=== PATIENT | female | born 1985 | race Caucasian/White ===

== ENCOUNTER 2017-12-20 16:21 | Emergency (ER) | payer OTHER ==
--- NOTE | 2017-12-20 17:36 | PDOC ---
Rapid Medical Evaluation Time Seen by Provider: 12/20/17 17:28 Medical Evaluation: 12/20/17 17:32 pt c/o: coughing x 2 weeks, completed zpak, no asthma, on amoxicillin now Pt on brief exam:speaking full sentences, no coughing noted, vss Pt ordered for : none pt to proceed to the ED: Discharge Disposition - Diagnosis Cough - Referrals - Patient Instructions - Post Discharge Activity
[2017-12-20 17:42] VITALS: BP 142/85; PULSE 88; TEMP 98.1; BMI 25.5
--- NOTE | 2017-12-20 18:41 | PDOC ---
History of Present Illness - General Chief Complaint: Cold Symptoms Stated Complaint: COLD SYMPTOMS Time Seen by Provider: 12/20/17 17:28 History Source: Patient Exam Limitations: No Limitations - History of Present Illness Initial Comments: 12/20/17 18:36 32 yr female states she had bronchitis took zpack, now on amoxicillin and had decadron injection 2 days ago. PT denies fever no chills, no wheezing, no SOB. no chest pain. Pt has no medical history or allergies. Severity: reports: mild Past History - Past Medical History Allergies/Adverse Reactions: Allergies Allergy/AdvReac Type Severity Reaction Status Date / Time No Known Allergies Allergy Verified 12/20/17 17:33 Home Medications: Ambulatory Orders Albuterol Sulfate Inhaler - [Ventolin HFA Inhaler -] 1 - 2 inh PO Q4H #1 inhaler 12/20/17 Fluticasone Prop 0.05% Nasal [Flonase -] 1 - 2 spray NS DAILY #1 spray.pump CVA: No COPD: No DVT: No Dementia: No - Immunization History Immunization Up to Date: Yes - Suicide/Smoking/Psychosocial Hx Smoking History: Never smoked Information on smoking cessation initiated: No Hx Alcohol Use: No Drug/Substance Use Hx: No Substance Use Type: None *Physical Exam - Vital Signs Last Vital Signs Temp Pulse Resp BP Pulse Ox 98.1 F 88 17 142/85 98 12/20/17 17:33 12/20/17 17:33 12/20/17 17:33 12/20/17 17:33 12/20/17 17:33 - Physical Exam General Appearance: Yes: Nourished, Appropriately Dressed HEENT: positive: EOMI, JUAN, TMs Normal, Pharynx Normal Neck: positive: Supple. negative: Tender Respiratory/Chest: positive: Lungs Clear, Normal Breath Sounds. negative: Chest Tender Cardiovascular: positive: Regular Rhythm, Regular Rate Gastrointestinal/Abdominal: positive: Normal Bowel Sounds, Soft Medical Decision Making - Medical Decision Making 12/20/17 18:38 cc: cough improving pt asking to be checked for bronchitis no fever no sob non smoker *DC/Admit/Observation/Transfer Diagnosis at time of Disposition: Cough - Discharge Dispostion Disposition: HOME Condition at time of disposition: Good - Prescriptions Prescriptions: Albuterol Sulfate Inhaler - [Ventolin HFA Inhaler -] 1 - 2 inh PO Q4H #1 inhaler Fluticasone Prop 0.05% Nasal [Flonase -] 1 - 2 spray NS DAILY #1 spray.pump - Referrals - Patient Instructions Additional Instructions: drink pleanty of fluids to stay hydrated use FLONASE nasal spray for congestion tea with honey and lemon please follow with your primary care doctor tomorrow or Sunday - Post Discharge Activity Forms/Work/School Notes: Back to Work
== END 2017-12-20 18:41 | disposition home or self-care (01) ==
LOC: JER 16:21 → JERFT 16:21
DX: R05 Cough (principal)
CPT/HCPCS: 99281-25

== ENCOUNTER 2018-12-10 14:21 | Emergency (ER) | payer SELFPAY ==
--- NOTE | 2018-12-10 14:34 | PDOC ---
Rapid Medical Evaluation Time Seen by Provider: 12/10/18 14:31 Medical Evaluation: Allergies Allergy/AdvReac Type Severity Reaction Status Date / Time No Known Allergies Allergy Verified 12/20/17 17:33 12/10/18 14:31 Pt presents to the ED for L leg swelling for two days. Denies trauma. Admits to L leg pain. Denies recent travel, smoking, control use. Exam: ambulatory, no limp Orders: Nothing Pt to proceed to the ED for further evaluation Discharge Disposition - Diagnosis Leg pain, left - Referrals - Patient Instructions - Post Discharge Activity
[2018-12-10 14:37] VITALS: BP 140/80; PULSE 80; TEMP 98.6; BMI 25.3
--- NOTE | 2018-12-10 15:22 | PDOC ---
History of Present Illness - General Chief Complaint: Edema Stated Complaint: R ARM/L LEG SWOLLEN Time Seen by Provider: 12/10/18 14:31 History Source: Patient Exam Limitations: Clinical Condition - History of Present Illness Initial Comments: 12/10/18 15:19 Patient with a history of hypertension presented with complaint of 2 day history of pain and swelling to the left thigh down to the left lower leg and calf muscle sudden onset 2 days ago while sitting at work. Patient denies any trauma or injuries to the leg. Patient also reported mild pain to posterior back of right hand over right thumb for 3 days. Patient denies difficulty with ambulation. Patient denies chest pain, shortness of breath, palpitation. Patient denies numbness or tingling sensation. Patient was seen for similar symptoms 6 months ago and duplex done was negative. Patient reported feeling of left thigh feeling heavy than right. Timing/Duration: other (2 days) Past History - Past Medical History Allergies/Adverse Reactions: Allergies Allergy/AdvReac Type Severity Reaction Status Date / Time No Known Allergies Allergy Verified 12/10/18 14:34 Home Medications: Ambulatory Orders Albuterol Sulfate Inhaler - [Ventolin HFA Inhaler -] 1 - 2 inh PO Q4H #1 inhaler 12/20/17 Fluticasone Prop 0.05% Nasal [Flonase -] 1 - 2 spray NS DAILY #1 spray.pump Methocarbamol [Robaxin -] 500 mg PO BID PRN #14 tablet 12/10/18 Naproxen 500 mg PO BID PRN #20 tablet 12/10/18 CVA: No COPD: No DVT: No Dementia: No - Immunization History Immunization Up to Date: Yes - Suicide/Smoking/Psychosocial Hx Smoking History: Never smoked Hx Alcohol Use: No Drug/Substance Use Hx: No Substance Use Type: None Review of Systems - Review of Systems Able to Perform ROS?: Yes Is the patient limited Togolese proficient: No Constitutional: No: Weakness HEENTM: No: Blurred Vision, Recent change in vision Respiratory: No: Orthopnea, Shortness of Breath, SOB with Exertion, SOB at Rest , Hemoptysis Cardiac (ROS): No: Symptoms Reported, See HPI, Chest Pain, Edema, Irregular Heart Rate, Lightheadedness, Palpitations, Syncope, Chest Tightness, Other ABD/GI: No: Nausea, Vomiting Musculoskeletal: Yes: See HPI, Joint Pain (left thumb pain), Muscle Pain (left thigh down to lower leg). No: Joint Swelling, Muscle Weakness, Joint Stiffness *Physical Exam - Vital Signs Last Vital Signs Temp Pulse Resp BP Pulse Ox 98.6 F 80 16 140/80 99 12/10/18 14:34 12/10/18 14:34 12/10/18 14:34 12/10/18 14:34 12/10/18 14:34 - Physical Exam Comments: 12/10/18 15:22 GENERAL: Well developed, well nourished. Awake and alert. No acute distress. NECK: Supple. Full ROM. No JVD. Carotid pulses 2+ and symmetric, without bruits. No thyromegaly. No lymphadenopathy. CARDIOVASCULAR: Regular rate and rhythm. No murmurs, rubs, or gallops. Distal pulses are 2+ and symmetric. PULMONARY: No evidence of respiratory distress. Lungs clear to auscultation bilaterally. No wheezing, rales or rhonchi. ABDOMINAL: Soft. Non-tender. Non-distended. No rebound or guarding. No organomegaly. Normoactive bowel sounds. MUSCULOSKELETAL Normal range of motion at all joints. No bony deformities or tenderness. no pheripheral edema on exam to LE b/l. EXTREMITIES: No cyanosis. No clubbing. No edema. moderate calf muscle and anterior left thigh tenderness. normal pulses on b/l dorsalis pedis and popliteal b/l. SKIN: Warm and dry. Normal capillary refill. NEUROLOGICAL: Alert, awake, appropriate. Cranial nerves 2-12 intact.No motor deficits in the in lower extremities. Normoreflexic in the upper and lower extremities. Normal speech. Toes are down-going bilaterally. Gait is normal without ataxia. PSYCHIATRIC: Cooperative. Good eye contact. Appropriate mood and affect. General Appearance: Yes: Nourished, Appropriately Dressed. No: Apparent Distress Moderate Sedation - Procedure Monitoring Vital Signs: Procedure Monitoring Vital Signs Temperature 98.6 F 12/10/18 14:34 Pulse Rate 80 12/10/18 14:34 Respiratory Rate 16 12/10/18 14:34 Blood Pressure 140/80 12/10/18 14:34 O2 Sat by Pulse Oximetry (%) 99 12/10/18 14:34 ED Treatment Course - RADIOLOGY Radiology Studies Ordered: Category Date Time Status DUPLEX VASCUL US-1 LEG [US] Stat Ultrasound 12/10/18 15:15 Ordered Medical Decision Making - Medical Decision Making 12/10/18 15:26 Patient with a history of hypertension presented with complaint of 2 day history of pain and swelling to the left thigh down to the left lower leg and calf muscle sudden onset 2 days ago while sitting at work. Patient denies any trauma or injuries to the leg. Patient also reported mild pain to posterior back of right hand over right thumb for 3 days. Patient denies difficulty with ambulation. Patient denies chest pain, shortness of breath, palpitation. Patient denies numbness or tingling sensation. Patient was seen for similar symptoms 6 months ago and duplex done was negative. Exam significant for subjective tenderness to anterior thigh area and cuff muscle of left leg. No peripheral edema visible on exam. Bilateral lower extremity equal in size on visualization. Increased warmth or erythema to left lower extremity. Normal pulses left lower extremity. Symptoms likely muscle spasm. Duplex ultrasound of left lower extremity ordered to rule out DVT 12/10/18 16:37 Duplex ultrasound of left lower extremity negative for DVT. Symptoms likely muscle cramps. Motrin 800 mg by mouth and cyclobenzaprine 5 mg by mouth given. Patient is stable for discharge on NSAIDs and muscle relaxer with advised to do stretching exercise with PCP follow-up as needed. *DC/Admit/Observation/Transfer Diagnosis at time of Disposition: Leg pain, left, Muscle spasm of left lower extremity - Discharge Dispostion Disposition: HOME Condition at time of disposition: Stable Decision to Admit order: No - Prescriptions Prescriptions: Methocarbamol [Robaxin -] 500 mg PO BID PRN #14 tablet PRN Reason: thigh pain Naproxen 500 mg PO BID PRN #20 tablet PRN Reason: pain - Referrals Referrals: Anirudh Okeefe MD [Primary Care Provider] - - Patient Instructions Printed Discharge Instructions: DI for Nocturnal Leg Cramps Additional Instructions: Leg ultrasound shows no blood clots. The symptoms likely muscle cramps. Take medication as prescribed. Apply heat therapy 2-3 times a day for few minutes as needed. Rest lower leg and do stretching exercise as needed for pain - Post Discharge Activity Forms/Work/School Notes: Back to Work
[2018-12-10] MEDS ORDERED: IBUPROFEN 400 MG TABLET (FP) PO ONE ×2 (16:06→16:13)
[2018-12-10] MEDS ORDERED: CYCLOBENZAPRINE HCL 10 MG TABLET (FP) PO ONE (16:06)
[2018-12-10] MEDS ORDERED: CYCLOBENZAPRINE HCL 10 MG TABLET (FP) ONE (16:13)
== END 2018-12-10 16:45 | disposition home or self-care (01) ==
LOC: JERFT 14:21
DX: M62.831 Muscle spasm of calf (principal); M79.641 Pain in right hand
CPT/HCPCS: 93971-TC; 99281-25

== ENCOUNTER 2019-04-19 11:33 | Emergency (ER) | payer OTHER | END 2019-04-19 13:18 | disposition home or self-care (01) | LOC: JERFT 11:33 ==

== ENCOUNTER 2019-07-14 16:27 | Inpatient (IN) | payer OTHER ==
[2019-07-14] MEDS ORDERED: ACETAMINOPHEN 1000 MG/100 ML VIAL (NON FORMULARY) IVPB ONE (16:50)
--- NOTE | 2019-07-14 16:50 | PDOC ---
Rapid Medical Evaluation Medical Evaluation: Allergies Allergy/AdvReac Type Severity Reaction Status Date / Time No Known Allergies Allergy Verified 04/19/19 13:10 I have performed a brief in-person evaluation of this patient. The patient presents with a chief complaint of: had temp of 101.9 today; c/o diffuse body aches, fever x 4 days along with dry cough, mild rhinorrhea, sore throat; had 1 episode of emesis 2 days ago; had 2 episodes of loose stools today ; denies recent travel, sick contacts, urinary complaints Pertinent physical exam findings: oropharynx unremarkable, +R cva tenderness I have ordered the following: labs, cxr The patient will proceed to the ED for further evaluation. 07/14/19 16:45
[2019-07-14 17:34] LABS: EPI CELLS 7.8 /HPF (0-5/HPF); HYALINE CASTS 162 /lpf (0-8); PH,URINE 5.5 (5.0-8.0); URINE APPEARANCE TURBID; URINE BACTERIA 2788.3 /hpf (NEGATIVE); URINE BILIRUBIN NEGATIVE (NEGATIVE); URINE COLOR DK YELLOW; URINE GLUCOSE (UA) NEGATIVE (NEGATIVE); URINE KETONE TRACE (NEGATIVE); URINE LEUK ESTERASE 3+ (NEGATIVE); URINE NITRITE POSITIVE (NEGATIVE); URINE PROTEIN 2+ (NEGATIVE); URINE WBC 145 /hpf (0-5)
[2019-07-14 17:35] LABS: BASO % 0.2 % (0-2.0); HEMATOCRIT 27.6 % (32.4-45.2); HEMOGLOBIN 9.2 GM/dL (10.7-15.3); LYMPH % 7.7 % (8-40); MCH 24.9 pg (25.7-33.7); MCHC 33.3 g/dl (32.0-36.0); MEAN CELL VOLUME 74.8 fl (80-96); MEAN PLT VOLUME 8.9 fl (7.5-11.1); MONO % 14.6 % (3.8-10.2); NEUT % 77.5 % (42.8-82.8); PLATELET COUNT 248 K/MM3 (134-434); RBC 3.69 M/mm3 (3.60-5.2); RDW 17.4 % (11.6-15.6); WHITE BLOOD COUNT 21.8 K/mm3 (4.0-10.0)
[2019-07-14] MEDS ORDERED: ACETAMINOPHEN INJECTION 100 ML IVPB ONE (17:35)
[2019-07-14 18:04] LABS: URINE RBC 3.5 /hpf (0-4)
[2019-07-14 18:10] LABS: ALBUMIN 3.2 g/dl (3.4-5.0); BILIRUBIN,TOTAL 0.6 mg/dL (0.2-1); BLOOD UREA NITROGEN 13.7 mg/dL (7-18); CALCIUM 8.8 mg/dL (8.5-10.1); CREATININE 1.5 mg/dL (0.55-1.3); TOT PROT 7.2 g/dl (6.4-8.2)
[2019-07-14 18:14] LABS: POTASSIUM 2.9 mmol/L (3.5-5.1)
[2019-07-14] MEDS ORDERED: CEFTRIAXONE 1,000 MG in DEXTROSE 5%-WATER - 50 ML IVPB ONE (18:18)
[2019-07-14 18:20] LABS: ANISOCYTOSIS 1+; MACROCYTOSIS 0; PLATELET ESTIMATE NORMAL; TARGET CELLS 1+
[2019-07-14] MEDS ORDERED: POTASSIUM CHLORIDE ORAL LIQUID 20 MEQ/15 ML PO ONE (18:22)
[2019-07-14] MEDS ORDERED: POTASSIUM CHLORIDE 20 MEQ PREMIX IVPB 100 ML IVPB ONE (18:23)
--- NOTE | 2019-07-14 18:26 | PDOC ---
History of Present Illness - General Chief Complaint: Respiratory Stated Complaint: PAINS INCLUDING/CHEST Time Seen by Provider: 07/14/19 16:45 History Source: Patient Exam Limitations: No Limitations Past History - Travel Traveled outside of the country in the last 30 days: No Close contact w/someone who was outside of country & ill: No - Past Medical History Allergies/Adverse Reactions: Allergies Allergy/AdvReac Type Severity Reaction Status Date / Time No Known Allergies Allergy Verified 07/14/19 16:48 Home Medications: Ambulatory Orders Fluticasone Prop 0.05% Nasal [Flonase -] 1 - 2 spray NS DAILY #1 spray.pump CVA: No COPD: No DVT: No Dementia: No HTN: Yes - Immunization History Immunization Up to Date: Yes - Suicide/Smoking/Psychosocial Hx Smoking History: Never smoked Have you smoked in the past 12 months: No Hx Alcohol Use: No Drug/Substance Use Hx: No Substance Use Type: None Review of Systems - Review of Systems Able to Perform ROS?: Yes Comments:: 07/14/19 18:54 CONSTITUTIONAL: Present: fever, chills, generalized weakness Absent: diaphoresis, malaise, loss of appetite HEENT: Absent: rhinorrhea, nasal congestion, throat pain, throat swelling, difficulty swallowing, mouth swelling, ear pain, eye pain, visual Changes CARDIOVASCULAR: Absent: chest pain, loss of consciousness, palpitations, irregular heart rate, peripheral edema RESPIRATORY: Present: cough Absent: shortness of breath, dyspnea with exertion, orthopnea, wheezing, stridor, hemoptysis GASTROINTESTINAL: Absent: abdominal pain, abdominal distension, nausea, vomiting, diarrhea, constipation, melena, hematochezia GENITOURINARY: Present: flank pain Absent: dysuria, frequency, urgency, hesitancy, hematuria, genital pain MUSCULOSKELETAL: Absent: myalgia, arthralgia, joint swelling SKIN: Absent: rash, itching, pallor HEMATOLOGIC/IMMUNOLOGIC: Absent: easy bleeding, easy bruising, lymphadenopathy, frequent infections ENDOCRINE: Absent: unexplained weight gain, unexplained weight loss, heat intolerance, cold intolerance NEUROLOGIC: Absent: headache, focal weakness or paresthesias, dizziness, unsteady gait, seizure, mental status changes, bladder or bowel incontinence PSYCHIATRIC: Absent: anxiety, depression, suicidal or homicidal ideation, hallucinations. Is the patient limited [place]ese proficient: No *Physical Exam - Vital Signs Last Vital Signs Temp Pulse Resp BP Pulse Ox 102.9 F H 118 H 16 100/59 L 99 07/14/19 16:36 07/14/19 16:36 07/14/19 16:36 07/14/19 16:36 07/14/19 16:36 - Physical Exam Comments: 07/14/19 19:05 GENERAL: Well developed, well nourished. Awake and alert. No acute distress. HEENT: Normocephalic, atraumatic. PERRLA, EOMI. No conjunctival pallor. Sclera are non- icteric. Moist mucous membranes. Oropharynx is clear. NECK: Supple. Full ROM. No JVD. Carotid pulses 2+ and symmetric, without bruits. No thyromegaly. No lymphadenopathy. CARDIOVASCULAR: Regular rate and rhythm. No murmurs, rubs, or gallops. Distal pulses are 2+ and symmetric. PULMONARY: No evidence of respiratory distress. Lungs clear to auscultation bilaterally. No wheezing, rales or rhonchi. ABDOMINAL: Soft. Non-tender. Non-distended. No rebound or guarding. No organomegaly. Normoactive bowel sounds. MUSCULOSKELETAL Normal range of motion at all joints. No bony deformities or tenderness. (+) R CVA tenderness. EXTREMITIES: No cyanosis. No clubbing. No edema. No calf tenderness. SKIN: Warm and dry. Normal capillary refill. No rashes. No jaundice. NEUROLOGICAL: Alert, awake, appropriate. Cranial nerves 2-12 intact. No deficits to light touch and temperature in face, upper extremities and lower extremities. No motor deficits in the in face, upper extremities and lower extremities. Normoreflexic in the upper and lower extremities. Normal speech. Toes are down- going bilaterally. Gait is normal without ataxia. PSYCHIATRIC: Cooperative. Good eye contact. Appropriate mood and affect. ED Treatment Course - LABORATORY CBC & Chemistry Diagram: 07/14/19 17:15 07/14/19 22:00 - ADDITIONAL ORDERS Additional order review: Laboratory Results 07/14/19 07/14/19 07/14/19 17:15 17:15 17:15 Sodium 135 L Potassium 2.9 L* Chloride 99 Carbon Dioxide 27 Anion Gap 10 BUN 13.7 Creatinine 1.5 H Est GFR (CKD-EPI)AfAm 52.14 Est GFR (CKD-EPI)NonAf 44.99 Random Glucose 125 H Calcium 8.8 Total Bilirubin 0.6 AST 11 L ALT 14 Alkaline Phosphatase 69 Total Protein 7.2 Albumin 3.2 L Urine Color Dk yellow Urine Appearance Turbid Urine pH 5.5 Ur Specific [place] 1.025 Urine Protein 2+ H Urine Glucose (UA) Negative Urine Ketones Trace H Urine Blood Trace Urine Nitrite Positive H Urine Bilirubin Negative Urine Urobilinogen 1.0 Ur Leukocyte Esterase 3+ H Urine WBC (Auto) 145 Urine RBC (Auto) 3.5 Urine Casts (Auto) 162 U Pathogenic Cast Auto 0-1 U Epithel Cells (Auto) 7.8 Urine Bacteria (Auto) 2788.3 Urine HCG, Qual Negative 07/14/19 17:15 RBC 3.69 MCV 74.8 L MCHC 33.3 RDW 17.4 H MPV 8.9 Neutrophils % 77.5 Lymphocytes % 7.7 L Monocytes % 14.6 H Eosinophils % 0.0 Basophils % 0.2 - RADIOLOGY Radiology Studies Ordered: Category Date Time Status SPIRAL- RENAL-STONE CT [CT] Stat CT Scan 07/14/19 18:23 Ordered - Medications Given in the ED: ED Medications Discontinued Medications Generic Name Dose Route Start Last Admin Trade Name Freq PRN Reason Stop Dose Admin Acetaminophen 1,000 mg 07/14/19 16:50 07/14/19 17:30 Ofirmev Injection - IVPB 07/14/19 16:51 1,000 mg ONCE ONE Administration Medical Decision Making - Medical Decision Making 07/14/19 18:57 The patient is a 33 y/o F with PMH HTN, kidney stones, who presents to the ER for four days of fever and back pain. She states that she also has associated muscle ache, cough, n/v, weakness and associated R sided back pain. She has fever of 101F for the past three days and has not taken any antipyretic. Denies dysuria, hemauria, SOB, diarrhea. PCP: Anirudh Okeefe A/P: Urosepsis Sepsis order set ordered Leukocytosis to 21 K+: 2.9; repleated CR elevated at 1.5 (+) UTI with flank pain Pyelo vs infected stones CT Spiral ordered Sign out given to ROSALIND Gurrola *DC/Admit/Observation/Transfer Diagnosis at time of Disposition: Pyelonephritis, SAI (acute kidney injury), Hypokalemia Sepsis Qualifiers: Severe sepsis shock status: without septic shock - Discharge Dispostion Condition at time of disposition: Fair - Referrals - Patient Instructions - Post Discharge Activity
[2019-07-14] MEDS ORDERED: POTASSIUM CHLORIDE ORAL LIQUID 20 MEQ/15 ML ONE (18:37)
[2019-07-14] MEDS ORDERED: CEFTRIAXONE 1 GM/50 ML BAG ONE (18:38)
[2019-07-14] MEDS ORDERED: KCL 10 MEQ IVPB 10 MEQ/100 ML INFUS.BAG IVPB ONE (18:38)
[2019-07-14] MEDS ORDERED: SODIUM CHLORIDE 1,000 ML IV STA (18:51)
[2019-07-14 19:07] LABS: VENOUS PC02 43.2 mmHg (38-52); VENOUS PH 7.39 (7.31-7.41)
[2019-07-14 19:09] LABS: VENOUS PO2 < 49 mmHg (28-48)
--- NOTE | 2019-07-14 19:39 | PDOC ---
*Physical Exam - Vital Signs Last Vital Signs Temp Pulse Resp BP Pulse Ox 98.2 F 100 H 20 99/56 L 100 07/14/19 18:18 07/14/19 18:18 07/14/19 18:18 07/14/19 18:18 07/14/19 18:18 ED Treatment Course - LABORATORY CBC & Chemistry Diagram: 07/14/19 17:15 07/14/19 17:15 - ADDITIONAL ORDERS Additional order review: Laboratory Results 07/14/19 07/14/19 07/14/19 18:30 18:30 17:15 PTT (Actin FS) 31.6 VBG pH 7.39 POC VBG pCO2 43.2 POC VBG pO2 < 49 H VBG HCO3 25.5 VBG O2 Sat (Emmanuel) 50.9 L VBG Base Excess 1.0 Sodium Potassium Chloride Carbon Dioxide Anion Gap BUN Creatinine Est GFR (CKD-EPI)AfAm Est GFR (CKD-EPI)NonAf Random Glucose Calcium Total Bilirubin AST ALT Alkaline Phosphatase Total Protein Albumin Urine Color Dk yellow Urine Appearance Turbid Urine pH 5.5 Ur Specific [place] 1.025 Urine Protein 2+ H Urine Glucose (UA) Negative Urine Ketones Trace H Urine Blood Trace Urine Nitrite Positive H Urine Bilirubin Negative Urine Urobilinogen 1.0 Ur Leukocyte Esterase 3+ H Urine WBC (Auto) 145 Urine RBC (Auto) 3.5 Urine Casts (Auto) 162 U Pathogenic Cast Auto 0-1 U Epithel Cells (Auto) 7.8 Urine Bacteria (Auto) 2788.3 Urine HCG, Qual 07/14/19 07/14/19 17:15 17:15 PTT (Actin FS) VBG pH POC VBG pCO2 POC VBG pO2 VBG HCO3 VBG O2 Sat (Emmanuel) VBG Base Excess Sodium 135 L Potassium 2.9 L* Chloride 99 Carbon Dioxide 27 Anion Gap 10 BUN 13.7 Creatinine 1.5 H Est GFR (CKD-EPI)AfAm 52.14 Est GFR (CKD-EPI)NonAf 44.99 Random Glucose 125 H Calcium 8.8 Total Bilirubin 0.6 AST 11 L ALT 14 Alkaline Phosphatase 69 Total Protein 7.2 Albumin 3.2 L Urine Color Urine Appearance Urine pH Ur Specific [place] Urine Protein Urine Glucose (UA) Urine Ketones Urine Blood Urine Nitrite Urine Bilirubin Urine Urobilinogen Ur Leukocyte Esterase Urine WBC (Auto) Urine RBC (Auto) Urine Casts (Auto) U Pathogenic Cast Auto U Epithel Cells (Auto) Urine Bacteria (Auto) Urine HCG, Qual Negative 07/14/19 17:15 RBC 3.69 MCV 74.8 L MCHC 33.3 RDW 17.4 H MPV 8.9 Neutrophils % 77.5 Lymphocytes % 7.7 L Monocytes % 14.6 H Eosinophils % 0.0 Basophils % 0.2 - Medications Given in the ED: ED Medications Discontinued Medications Generic Name Dose Route Start Last Admin Trade Name Matthieu PRN Reason Stop Dose Admin Acetaminophen 1,000 mg 07/14/19 16:50 07/14/19 17:30 Ofirmev Injection - IVPB 07/14/19 16:51 1,000 mg ONCE ONE Administration Ceftriaxone Sodium 1,000 mg/ 50 mls @ 100 mls/hr 07/14/19 18:18 07/14/19 18: 50 Dextrose IVPB 07/14/19 18:47 100 mls/hr ONCE ONE Administration Potassium Chloride 20 meq 07/14/19 18:23 07/14/19 18:51 Potassium Chloride 20 Meq Premix Ivpb - IVPB 07/14/19 18:24 Not Given ONCE ONE Potassium Chloride 40 meq 07/14/19 18:22 07/14/19 18:50 Potassium Chloride Oral Liquid PO 07/14/19 18:23 40 meq ONCE ONE Administration Progress Note - Progress Note Progress Note: Received signout from ROSLYN Castanon. Briefly this is a 33-year-old woman presents emergency department for evaluation of fevers and flank pain for 4 days. CBC notable for WBC 21.8 with left shift. No bands are present. Chemistry is notable for potassium-2.9 with creatinine 1.5. Urinalysis notable for positive nitrates 3+ leuk esterase and a heart 45 wbc's on high-power field. Patient has received ceftriaxone 1 g IV and potassium 40 mEq orally. Patient is currently getting the first of 2 potassium riders. Patient is pending CT scan to rule out kidney stone prior to admission. Medical Decision Making - Medical Decision Making 07/14/19 22:19 CT scan is read by Dr. Cope: No CT evidence of urolithiasis. There is no definite hydronephrosis. Small amount of free fluid is noted within the cul-de-sac. Probable 3 x 2.5 cm left posterior adnexal cyst. Increased fluid is noted within the small and large bowel-? Current diarrheal illness versus recent fluid ingestion Chest x-rays read by me: Angles sharp. Cardiac silhouette is within normal limits. Lung garcia clear without consolidation or infiltrate noted. Lactic acid is 1.4. Systolic blood pressure remains 95 or greater with a mean arterial pressure greater than 70. I'll the patient for urosepsis will not consider ICU admission as patient doesn't have any signs of severe sepsis or septic shock. 07/14/19 22:46 Dr. Avelar contacted for admission who states doctor Nikole is providing hospital coverage for her until tomorrow night. I will contact the hospitalist service for admission. 07/14/19 23:16 Case discussed with the hospitalist service who accepts patient under Dr. Martins. *DC/Admit/Observation/Transfer Diagnosis at time of Disposition: Pyelonephritis, SAI (acute kidney injury), Hypokalemia Sepsis Qualifiers: Severe sepsis shock status: without septic shock - Discharge Dispostion Condition at time of disposition: Fair Decision to Admit order: Yes - Referrals Referrals: Anirudh Okeefe MD [Primary Care Provider] - - Patient Instructions - Post Discharge Activity
[2019-07-14] MEDS: KCL 10 MEQ IVPB 10 MEQ/100 ML INFUS.BAG IVPB SCH ×2 (19:42→20:55)
[2019-07-14 22:23] LABS: MAGNESIUM 1.8 mg/dL (1.8-2.4)
[2019-07-15 00:12] LABS: BLOOD UREA NITROGEN 13.2 mg/dL (7-18); CALCIUM 8.2 mg/dL (8.5-10.1); CREATININE 1.4 mg/dL (0.55-1.3); POTASSIUM 4.1 mmol/L (3.5-5.1)
--- NOTE | 2019-07-15 00:27 | HP ---
CHIEF COMPLAINT: back pain, chest pain, fever for 4 days PCP: Dr. Martins HISTORY OF PRESENT ILLNESS: 33 year old female with PMHx of HTN, kidney stones, arrived to ER for four days of fever and back pain. Patient also complaind of chest pain on /off, generalized muscle ache, cough, n/v, weakness and R sided back pain. Patient states she had had fever of 101F for the past three days and has not taken any medication. Denies dysuria, hemauria, SOB, diarrhea. ER course was notable for: Chest x-rays: consolidation or infiltrate noted. CT Abd/pelvis: No CT evidence of urolithiasis. There is no definite hydronephrosis.Probable 3 x 2.5 cm left posterior adnexal cyst. Increased fluid is noted within the small and large bowel-? Current diarrheal illness versus recent fluid ingestion -Urinalysis positive nitrates 3+ leuk esterase -wbc: 21.8, lactic 1.4 -Bun/Cr: 13.7/ 1.5 - K+: 2.9 In ED given 1L NS, Rocephine 1g IV, KCL 40 mEq po - started on 2 potassium riders Recent Travel: no PAST MEDICAL HISTORY: HTN, h.o kidney stones PAST SURGICAL HISTORY: denies Social History: Smoking:no Alcohol:no Drugs: no Family History: denies Allergies:No Known Allergies Allergy (Verified 07/14/19 16:48) HOME MEDICATIONS: Home Medications Medication Instructions Recorded Fluticasone Prop 0.05% Nasal 1 - 2 spray NS DAILY #1 spray.pump 12/20/17 [Flonase -] REVIEW OF SYSTEMS CONSTITUTIONAL: Absent: + fever, chills, generalized weakness HEENT: Absent: rhinorrhea, nasal congestion, throat pain, throat swelling, difficulty swallowing, mouth swelling, ear pain, eye pain, visual changes CARDIOVASCULAR: + chest pain denies: syncope, palpitations, irregular heart rate , lightheadedness, peripheral edema RESPIRATORY: + cough denies: shortness of breath, dyspnea with exertion, orthopnea, wheezing, stridor, hemoptysis GASTROINTESTINAL: + N/V, back pain. Absent: abdominal pain, abdominal distension , diarrhea, constipation GENITOURINARY: + flank pain Absent: dysuria, frequency, urgency, hesitancy, hematuria,genital pain MUSCULOSKELETAL: Absent: myalgia, arthralgia, joint swelling, back pain, neck pain SKIN: Absent: rash, itching, pallor NEUROLOGIC: Absent: headache, focal weakness or paresthesias, dizziness, mental status changes, bladder or bowel incontinence PSYCHIATRIC: Absent: anxiety, depression, suicidal or homicidal ideation, hallucinations. PHYSICAL EXAMINATION Vital Signs - 24 hr 07/14/19 07/14/19 07/14/19 16:36 18:18 19:10 Temperature 102.9 F H 98.2 F 98 F Pulse Rate 118 H Pulse Rate [ 100 H 101 H Left Radial] Respiratory 16 20 18 Rate Blood Pressure 100/59 L Blood Pressure 99/56 L 97/62 [Left Arm] O2 Sat by Pulse 99 100 98 Oximetry (%) GENERAL: awake, alert,c.o of generalized weakens HEENT: NC/AT, EOMI, PERRLA, No JVD LUNGS: Breath sounds equal, clear to auscultation bilaterally. No wheezes, and no crackles. HEART: Regular rate and rhythm, normal S1 and S2 without murmur, rub or gallop. ABDOMEN: Soft, nontender, not distended, normoactive bowel sounds, no guarding, no rebound, no masses. MUSCULOSKELETAL: Normal range of motion at all joints. No bony deformities or tenderness. + CVA tenderness. NEUROLOGICAL: Cranial nerves II-XII intact. Normal speech PSYCHIATRIC: Cooperative. Good eye contact. Appropriate mood and affect. SKIN: Warm, dry Laboratory Results - last 24 hr 07/14/19 07/14/19 07/14/19 17:15 17:15 17:15 WBC 21.8 H RBC 3.69 Hgb 9.2 L Hct 27.6 L MCV 74.8 L MCH 24.9 L MCHC 33.3 RDW 17.4 H Plt Count 248 MPV 8.9 Absolute Neuts (auto) 16.9 H Neutrophils % 77.5 Neutrophils % (Manual) 83.2 H Band Neutrophils % 0.0 Lymphocytes % 7.7 L Lymphocytes % (Manual) 7.4 L Monocytes % 14.6 H Monocytes % (Manual) 8 Eosinophils % 0.0 Eosinophils % (Manual) 0.0 Basophils % 0.2 Basophils % (Manual) 0.0 Myelocytes % (Man) 0 Promyelocytes % (Man) 0 Blast Cells % (Manual) 0 Nucleated RBC % 0 Metamyelocytes 0 Hypochromia 1+ Platelet Estimate Normal Polychromasia 1+ Poikilocytosis 0 Anisocytosis 1+ Microcytosis 1+ Macrocytosis 0 Target Cells 1+ PTT (Actin FS) VBG pH POC VBG pCO2 POC VBG pO2 VBG HCO3 VBG O2 Sat (Emmanuel) VBG Base Excess Sodium 135 L Potassium 2.9 L* Chloride 99 Carbon Dioxide 27 Anion Gap 10 BUN 13.7 Creatinine 1.5 H Est GFR (CKD-EPI)AfAm 52.14 Est GFR (CKD-EPI)NonAf 44.99 Random Glucose 125 H Lactic Acid Calcium 8.8 Magnesium Total Bilirubin 0.6 AST 11 L ALT 14 Alkaline Phosphatase 69 Total Protein 7.2 Albumin 3.2 L Urine Color Urine Appearance Urine pH Ur Specific Franklin Urine Protein Urine Glucose (UA) Urine Ketones Urine Blood Urine Nitrite Urine Bilirubin Urine Urobilinogen Ur Leukocyte Esterase Urine WBC (Auto) Urine RBC (Auto) Urine Casts (Auto) U Pathogenic Cast Auto U Epithel Cells (Auto) Urine Bacteria (Auto) Urine HCG, Qual Negative 07/14/19 07/14/19 07/14/19 17:15 18:30 18:30 WBC RBC Hgb Hct MCV MCH MCHC RDW Plt Count MPV Absolute Neuts (auto) Neutrophils % Neutrophils % (Manual) Band Neutrophils % Lymphocytes % Lymphocytes % (Manual) Monocytes % Monocytes % (Manual) Eosinophils % Eosinophils % (Manual) Basophils % Basophils % (Manual) Myelocytes % (Man) Promyelocytes % (Man) Blast Cells % (Manual) Nucleated RBC % Metamyelocytes Hypochromia Platelet Estimate Polychromasia Poikilocytosis Anisocytosis Microcytosis Macrocytosis Target Cells PTT (Actin FS) 31.6 VBG pH POC VBG pCO2 POC VBG pO2 VBG HCO3 VBG O2 Sat (Emmanuel) VBG Base Excess Sodium Potassium Chloride Carbon Dioxide Anion Gap BUN Creatinine Est GFR (CKD-EPI)AfAm Est GFR (CKD-EPI)NonAf Random Glucose Lactic Acid 1.4 Calcium Magnesium Total Bilirubin AST ALT Alkaline Phosphatase Total Protein Albumin Urine Color Dk yellow Urine Appearance Turbid Urine pH 5.5 Ur Specific Franklin 1.025 Urine Protein 2+ H Urine Glucose (UA) Negative Urine Ketones Trace H Urine Blood Trace Urine Nitrite Positive H Urine Bilirubin Negative Urine Urobilinogen 1.0 Ur Leukocyte Esterase 3+ H Urine WBC (Auto) 145 Urine RBC (Auto) 3.5 Urine Casts (Auto) 162 U Pathogenic Cast Auto 0-1 U Epithel Cells (Auto) 7.8 Urine Bacteria (Auto) 2788.3 Urine HCG, Qual 07/14/19 07/14/19 07/14/19 18:30 22:00 22:00 WBC RBC Hgb Hct MCV MCH MCHC RDW Plt Count MPV Absolute Neuts (auto) Neutrophils % Neutrophils % (Manual) Band Neutrophils % Lymphocytes % Lymphocytes % (Manual) Monocytes % Monocytes % (Manual) Eosinophils % Eosinophils % (Manual) Basophils % Basophils % (Manual) Myelocytes % (Man) Promyelocytes % (Man) Blast Cells % (Manual) Nucleated RBC % Metamyelocytes Hypochromia Platelet Estimate Polychromasia Poikilocytosis Anisocytosis Microcytosis Macrocytosis Target Cells PTT (Actin FS) VBG pH 7.39 POC VBG pCO2 43.2 POC VBG pO2 < 49 H VBG HCO3 25.5 VBG O2 Sat (Emmanuel) 50.9 L VBG Base Excess 1.0 Sodium Potassium Chloride Carbon Dioxide Anion Gap BUN Creatinine Est GFR (CKD-EPI)AfAm Est GFR (CKD-EPI)NonAf Random Glucose Lactic Acid 1.4 Calcium Magnesium 1.8 Total Bilirubin AST ALT Alkaline Phosphatase Total Protein Albumin Urine Color Urine Appearance Urine pH Ur Specific Franklin Urine Protein Urine Glucose (UA) Urine Ketones Urine Blood Urine Nitrite Urine Bilirubin Urine Urobilinogen Ur Leukocyte Esterase Urine WBC (Auto) Urine RBC (Auto) Urine Casts (Auto) U Pathogenic Cast Auto U Epithel Cells (Auto) Urine Bacteria (Auto) Urine HCG, Qual ASSESSMENT/PLAN: 33 year old female arrived to ED for evaluation of fevers and flank, chest pain for 4 days. # sepsis 2/2 Pyelonephritis #SAI #Hypokalemia EKG: NSR, no acute changes Chest x-rays: consolidation or infiltrate noted. CT Abd/pelvis: No CT evidence of urolithiasis. There is no definite hydronephrosis.Probable 3 x 2.5 cm left posterior adnexal cyst. Increased fluid is noted within the small and large bowel-? Current diarrheal illness versus recent fluid ingestion -Urinalysis positive nitrates 3+ leuk esterase -wbc: 21.8, lactic 1.4 -Bun/Cr: 13.7/ 1.5 - K+: 2.9 In ED given 1L NS, Rocephine 1g IV, KCL 40 mEq po - s/p 2 potassium riders --> repeat BMP, Mg+: wnl - follow up trops - repeat cbc, BMP in AM - monitor cr trend - continue with NS IV fluid - continue with Rocephin 1 g daily - continue with Tylenol PRN # HTN - diet control no medication - BP is low ( 97/62), continue with IV fluids - monitor BP closey DVT: Heparin Diet: low sodium Problem List - Problem (1) Sepsis Code(s): A41.9 - SEPSIS, UNSPECIFIED ORGANISM Qualifiers: Severe sepsis shock status: without septic shock (2) Pyelonephritis Code(s): N12 - TUBULO-INTERSTITIAL NEPHRITIS, NOT SPCF ACUTE OR CHRONIC (3) SAI (acute kidney injury) Code(s): N17.9 - ACUTE KIDNEY FAILURE, UNSPECIFIED (4) Hypokalemia Code(s): E87.6 - HYPOKALEMIA (5) HTN (hypertension) Code(s): I10 - ESSENTIAL (PRIMARY) HYPERTENSION Visit type - Emergency Visit Emergency Visit: Yes ED Registration Date: 07/14/19 Care time: The patient presented to the Emergency Department on the above date and was hospitalized for further evaluation of their emergent condition. - New Patient This patient is new to me today: Yes Date on this admission: 07/15/19 - Critical Care Critical Care patient: No
[2019-07-15] MEDS ORDERED: SODIUM CHLORIDE 1,000 ML IV SCH (00:30)
[2019-07-15] MEDS: ACETAMINOPHEN 325 MG TABLET (FP) PO PRN ×2 (04:38→16:54)
[2019-07-15 05:11] VITALS: BMI 26.6
[2019-07-15] MEDS ORDERED: cefTRIAXone SODIUM 1 GM VIAL ONE (10:08)
[2019-07-15] MEDS ORDERED: DEXTROSE 5%-WATER - 50 ML IVPB ONE (10:08)
[2019-07-15] MEDS: CEFTRIAXONE 1 GM in DEXTROSE 5%-WATER - 50 ML IVPB SCH (10:14)
[2019-07-15] MEDS: HEPARIN NA (PORCINE) 5,000 UNITS/ML 1ML VIAL SQ SCH ×3 (10:15→22:45)
[2019-07-15 10:34] LABS: HEMATOCRIT 26.1 % (32.4-45.2); HEMOGLOBIN 8.7 GM/dL (10.7-15.3); MCH 24.9 pg (25.7-33.7); MCHC 33.2 g/dl (32.0-36.0); MEAN CELL VOLUME 75.1 fl (80-96); MEAN PLT VOLUME 9.1 fl (7.5-11.1); PLATELET COUNT 234 K/MM3 (134-434); RBC 3.48 M/mm3 (3.60-5.2); RDW 17.2 % (11.6-15.6); WHITE BLOOD COUNT 21.1 K/mm3 (4.0-10.0)
[2019-07-15 11:01] LABS: BLOOD UREA NITROGEN 10.9 mg/dL (7-18); CALCIUM 8.2 mg/dL (8.5-10.1); CREATININE 1.1 mg/dL (0.55-1.3); POTASSIUM 3.6 mmol/L (3.5-5.1)
--- NOTE | 2019-07-15 11:12 | EKG ---
Test Reason : Blood Pressure : / mmHG Vent. Rate : 110 BPM Atrial Rate : 110 BPM P-R Int : 150 ms QRS Dur : 072 ms QT Int : 310 ms P-R-T Axes : 072 064 064 degrees QTc Int : 419 ms SINUS TACHYCARDIA OTHERWISE NORMAL ECG NO PREVIOUS ECGS AVAILABLE Confirmed by Phil Resendiz MD ([id number]) on 07/15/2019 11:12:04 AM Referred By: Confirmed By:Phil Resendiz MD
--- NOTE | 2019-07-15 15:51 | PN ---
Progress Note, Physician Chief Complaint: Sepsis R Flank Pain History of Present Illness: Previous notes and events reviewed awake and alert NAD sts having R flank pain denies dysuria, hematuria UC and BC pending - Current Medication List Current Medications: Active Medications Acetaminophen (Tylenol -) 650 mg PO Q6H PRN PRN Reason: PAIN OR FEVER Last Admin: 07/15/19 04:38 Dose: 650 mg Heparin Sodium (Porcine) (Heparin -) 5,000 unit SQ BID [facility] Last Admin: 07/15/19 10:15 Dose: 5,000 unit Sodium Chloride (Normal Saline -) 1,000 mls @ 50 mls/hr IV ASDIR [facility] Stop: 07/16/19 00:28 Last Admin: 07/15/19 00:46 Dose: 50 mls/hr Ceftriaxone Sodium 1 gm/ (Dextrose) 50 mls @ 100 mls/hr IVPB DAILY [facility] Last Admin: 07/15/19 10:14 Dose: 100 mls/hr - Objective Vital Signs: Vital Signs Temperature 98.2 F 07/15/19 14:09 Pulse Rate 104 H 07/15/19 14:09 Respiratory Rate 18 07/15/19 14:09 Blood Pressure 137/78 07/15/19 14:09 O2 Sat by Pulse Oximetry (%) 100 07/15/19 09:00 Constitutional: Yes: No Distress, Calm Eyes: Yes: Conjunctiva Clear HENT: Yes: Atraumatic Cardiovascular: Yes: Regular Rate and Rhythm Respiratory: Yes: Regular, CTA Bilaterally Gastrointestinal: Yes: Normal Bowel Sounds, Soft Genitourinary: Yes: CVA Tenderness - Right Musculoskeletal: Yes: WNL Extremities: Yes: WNL Edema: No Neurological: Yes: Alert, Oriented Psychiatric: Yes: Alert, Oriented Labs: CBC, BMP 07/15/19 10:05 07/15/19 10:05 Problem List - Problems (1) SAI (acute kidney injury) Assessment/Plan: -BUN/Cr 10.9/1.1 -monitor Renal function Code(s): N17.9 - ACUTE KIDNEY FAILURE, UNSPECIFIED (2) Pyelonephritis Assessment/Plan: -CT scan shows no urolithiasis and no definite hydronephrosis -UC and BC pending -WBC 21.1 -afebrile -Ceftriaxone -ID consult -UA shows 3+ leuks, positive nitrite Code(s): N12 - TUBULO-INTERSTITIAL NEPHRITIS, NOT SPCF ACUTE OR CHRONIC (3) Sepsis Assessment/Plan: -CT scan shows no urolithiasis and no definite hydronephrosis -UC and BC pending -WBC 21.1 -afebrile -Ceftriaxone -ID consult -UA shows 3+ leuks, positive nitrite -LA 1.4 Code(s): A41.9 - SEPSIS, UNSPECIFIED ORGANISM Qualifiers: Severe sepsis shock status: without septic shock (4) HTN (hypertension) Assessment/Plan: -diet controlloed -monitor BP Code(s): I10 - ESSENTIAL (PRIMARY) HYPERTENSION Assessment/Plan see problem list dvt ppx
--- NOTE | 2019-07-15 17:00 | PN ---
Progress Note (short form) - Note Progress Note: ID consult dictated imp/reccd 33 yo female admitted with fever and chills for 4 days- taking aleve and muscle relaxant at home notes vomiting and nonbloody diarrhea times 2 no dysurai +right flank pain no recent antibiotcs n prior history of UTI denies vaginal discharge or pelvic pain ct scan abd/pelvis- no calculi, no hydro +left adnexal cyst only hospitalization was 10 years agofor csection in [place] +pyuria right pyelonephritis/UTI sai-improving with IVF agree with IVF and rocephin Problem List - Problems (1) Pyelonephritis Code(s): N12 - TUBULO-INTERSTITIAL NEPHRITIS, NOT SPCF ACUTE OR CHRONIC (2) SAI (acute kidney injury) Code(s): N17.9 - ACUTE KIDNEY FAILURE, UNSPECIFIED
[2019-07-15] MEDS: SODIUM CHLORIDE 1,000 ML IV SCH (19:30)
--- NOTE | 2019-07-15 19:48 | CONS ---
DATE OF CONSULTATION: DATE OF DICTATION: 07/15/2019 INFECTIOUS DISEASE CONSULTATION REQUESTING PHYSICIAN: Shasha Martins M.D. CONSULTING PHYSICIAN: Brittni Hopper M.D. HISTORY OF PRESENT ILLNESS: This is a 33-year-old woman with a past medical history of hypertension and kidney stones. She has never been hospitalized except 10 years ago when she had a in [place]. She presents with a 4-day history of fever and chills. She denies dysuria. She had some vomiting. She had 2 episodes of nonbloody diarrhea, and she has right flank pain. She was evaluated in the emergency room and noted to have pyuria and a fever of 102.9. She was noted to have a white count of 21.8. She had a CAT scan of her abdomen and pelvis done which showed a left posterior adnexal cyst, no calculus or hydronephrosis. Since that time her highest temperature is the current temperature of 100.3. She has been able to eat today. There has been no further vomiting or diarrhea. She has had a regular breakfast and lunch, and she is hungry and wants to eat dinner. She notes persistent right flank pain. PAST MEDICAL HISTORY: Notable for the history of prior hypertension and kidney stones. She at home uses Flonase nasal spray. She was taking some muscle relaxants that she said she had left over from a prior ER visit. She also had some Aleve at home she was taking for fever. SOCIAL HISTORY: There is no history of cigarette, alcohol, or substance use. She lives with her 10-year-old. She denies any alcohol, cigarette, or substance use. She works as a home health aid. She is sexually active, intermittent condom use. Last HIV test was negative, she thinks with her PMD last year. REVIEW OF SYSTEMS: She denies any pelvic pain or vaginal discharge or dysuria. Her vomiting and diarrhea have stopped. She continues to have right flank pain. PHYSICAL EXAMINATION: General: She is awake and alert. Vital Signs: Temperature is 100.3, pulse of 104, blood pressure 137/78, respiratory rate 18. She is saturating 100% on room air. HEENT: Normocephalic. Eyes are anicteric. Neck: Supple. Lungs: Clear to auscultation. Heart: Regular rate and rhythm. Abdomen: Soft, she has no right upper quadrant pain, she has right CVA tenderness on palpation, she has no pelvic pain on palpation. Extremities: Without edema. Skin: She has no rash. LABORATORY: White count is 21,000, hemoglobin is 8.7, platelets are 234. BUN and creatinine are 10 and 1.1, on admission were 13 and 1.5. LFTs are normal. Urinalysis has 3+ leukocytes with 145 white cells. test is negative. She has urine and blood cultures pending. Imaging is as previously described. Chest x-ray is clear. Of note, she has a history of anemia as well and is taking iron. IMPRESSION: In summary, this is a 33-year-old woman, no prior history of urinary tract infections, no recent antibiotics, admitted with fever and chills, right sided flank pain and urinary tract infection consistent with right sided pyelonephritis, acute kidney injury that is improving with fluids. I would agree with continuing the fluids and Rocephin and following up her cultures at this time. BRITTNI HOPPER M.D. [id number]
[2019-07-16] MEDS: ACETAMINOPHEN 325 MG TABLET (FP) PO PRN ×2 (05:08→18:09)
[2019-07-16 07:32] LABS: HEMATOCRIT 24.2 % (32.4-45.2); HEMOGLOBIN 8.1 GM/dL (10.7-15.3); MCH 25.3 pg (25.7-33.7); MCHC 33.6 g/dl (32.0-36.0); MEAN CELL VOLUME 75.1 fl (80-96); MEAN PLT VOLUME 8.9 fl (7.5-11.1); PLATELET COUNT 243 K/MM3 (134-434); RBC 3.22 M/mm3 (3.60-5.2); RDW 17.7 % (11.6-15.6); WHITE BLOOD COUNT 16.6 K/mm3 (4.0-10.0)
[2019-07-16 08:03] LABS: ALBUMIN 2.3 g/dl (3.4-5.0); BILIRUBIN,TOTAL 0.4 mg/dL (0.2-1); CALCIUM 8.1 mg/dL (8.5-10.1); CREATININE 0.9 mg/dL (0.55-1.3); POTASSIUM 3.5 mmol/L (3.5-5.1)
[2019-07-16] MEDS ORDERED: cefTRIAXone SODIUM 1 GM VIAL ONE (09:42)
[2019-07-16] MEDS ORDERED: DEXTROSE 5%-WATER - 50 ML IVPB ONE (09:42)
[2019-07-16] MEDS: SODIUM CHLORIDE 1,000 ML IV SCH ×2 (09:46→18:10)
[2019-07-16] MEDS: HEPARIN NA (PORCINE) 5,000 UNITS/ML 1ML VIAL SQ SCH ×2 (09:47→22:32)
[2019-07-16] MEDS: CEFTRIAXONE 1 GM in DEXTROSE 5%-WATER - 50 ML IVPB SCH (09:47)
--- NOTE | 2019-07-16 11:38 | PN ---
Progress Note (short form) - Note Progress Note: feels improved, no fever overnight less flank pain eating well no vomiting or diarrhea Vital Signs Period Temp Pulse Resp BP Sys/Miller Pulse Ox Last 24 Hr 98.2 F-100.3 F 80-106 18-18 109-137/53-78 98-98 cor-rrr lungs clear abd soft,nt +right cvat ext no edema CBC, BMP 07/16/19 06:50 07/16/19 06:50 Microbiology 07/14/19 17:15 Urine - Urine Clean Catch Urine Culture - Preliminary Lactose Fermenting Neg Bacilli Proteus Species 07/14/19 18:30 Blood - Peripheral Venous Blood Culture - Preliminary NO GROWTH OBTAINED AFTER 24 HOURS, INCUBATION TO CONTINUE FOR 4 DAYS. 07/14/19 18:30 Blood - Peripheral Venous Blood Culture - Preliminary NO GROWTH OBTAINED AFTER 24 HOURS, INCUBATION TO CONTINUE FOR 4 DAYS. a/p right pyelonephritis/UTI sai-resolved anemia-chronic continue rocephin, hopefully switch to po antibiotics in am Problem List - Problems (1) Pyelonephritis Code(s): N12 - TUBULO-INTERSTITIAL NEPHRITIS, NOT SPCF ACUTE OR CHRONIC (2) SAI (acute kidney injury) Code(s): N17.9 - ACUTE KIDNEY FAILURE, UNSPECIFIED
--- NOTE | 2019-07-16 14:42 | PN ---
Progress Note, Physician Chief Complaint: Sepsis R Flank Pain History of Present Illness: Previous notes and events reviewed awake and alert NAD sts having R flank pain denies dysuria, hematuria UC prelinm positive - Current Medication List Current Medications: Active Medications Acetaminophen (Tylenol -) 650 mg PO Q6H PRN PRN Reason: PAIN OR FEVER Last Admin: 07/16/19 05:08 Dose: 650 mg Heparin Sodium (Porcine) (Heparin -) 5,000 unit SQ BID [facility] Last Admin: 07/16/19 09:47 Dose: 5,000 unit Ceftriaxone Sodium 1 gm/ (Dextrose) 50 mls @ 100 mls/hr IVPB DAILY [facility] Last Admin: 07/16/19 09:47 Dose: 100 mls/hr Sodium Chloride (Normal Saline -) 1,000 mls @ 75 mls/hr IV ASDIR [facility] Last Admin: 07/16/19 09:46 Dose: 75 mls/hr - Objective Vital Signs: Vital Signs Temperature 98.2 F 07/16/19 07:52 Pulse Rate 80 07/16/19 07:52 Respiratory Rate 18 07/16/19 07:55 Blood Pressure 129/67 07/16/19 07:52 O2 Sat by Pulse Oximetry (%) 98 07/16/19 07:55 Constitutional: Yes: No Distress, Calm Eyes: Yes: Conjunctiva Clear HENT: Yes: Atraumatic Cardiovascular: Yes: Regular Rate and Rhythm Respiratory: Yes: Regular, CTA Bilaterally Gastrointestinal: Yes: Normal Bowel Sounds, Soft Musculoskeletal: Yes: WNL Extremities: Yes: WNL Edema: No Neurological: Yes: Alert, Oriented Psychiatric: Yes: Alert, Oriented Labs: CBC, BMP 07/16/19 06:50 07/16/19 06:50 Problem List - Problems (1) SAI (acute kidney injury) Assessment/Plan: -BUN/Cr 6.0/0.9 -monitor Renal function Code(s): N17.9 - ACUTE KIDNEY FAILURE, UNSPECIFIED (2) Pyelonephritis Assessment/Plan: -CT scan shows no urolithiasis and no definite hydronephrosis -UC prelim positivr -BC neg -WBC 16.6 -afebrile -Ceftriaxone -ID consult -UA shows 3+ leuks, positive nitrite Code(s): N12 - TUBULO-INTERSTITIAL NEPHRITIS, NOT SPCF ACUTE OR CHRONIC (3) Sepsis Assessment/Plan: -CT scan shows no urolithiasis and no definite hydronephrosis -UC prelim positive -BC neg -WBC 16.6 -afebrile -Ceftriaxone -ID consult -UA shows 3+ leuks, positive nitrite -LA 1.4 Code(s): A41.9 - SEPSIS, UNSPECIFIED ORGANISM Qualifiers: Severe sepsis shock status: without septic shock (4) HTN (hypertension) Assessment/Plan: -diet controlloed -monitor BP Code(s): I10 - ESSENTIAL (PRIMARY) HYPERTENSION (5) Anemia Assessment/Plan: -Hg 8.1 -iron panel -stool OB -Hematology consult Code(s): D64.9 - ANEMIA, UNSPECIFIED Assessment/Plan see problem list dvt ppx
--- NOTE | 2019-07-16 18:30 | CONSULT ---
Consult - Past Medical History ...LMP Comment: end of june/early july ...: No - Alcohol/Substance Use Hx Alcohol Use: No - Smoking History Smoking history: Never smoked Have you smoked in the past 12 months: No Home Medications - Allergies Allergies/Adverse Reactions: Allergies Allergy/AdvReac Type Severity Reaction Status Date / Time No Known Allergies Allergy Verified 07/14/19 16:48 - Home Medications Home Medications: Ambulatory Orders Fluticasone Prop 0.05% Nasal [Flonase -] 1 - 2 spray NS DAILY #1 spray.pump Physical Exam Vital Signs: Vital Signs Temperature 98.3 F 07/16/19 14:00 Pulse Rate 81 07/16/19 14:00 Respiratory Rate 18 07/16/19 14:00 Blood Pressure 133/88 07/16/19 14:00 O2 Sat by Pulse Oximetry (%) 98 07/16/19 07:55 Labs: CBC, BMP 07/16/19 06:50 07/16/19 06:50 Assessment/Plan Consult dictated 33 year old presents with 10 days of flank pain and fevers to 101+ over 7 days. Has right flank pain and gram negative bacilli in urine - picture compatible with pyelonephritis. Family hx - 3 members with [employer] aneurysms, sister with SC disease, mother with SS disease. Never had crises ROS- Headaches, no diplopia, epistaxis, dysphagia, SOB, chest pains,nausea, diarrhea, + flank pains, some myalgias P.E. Last Vital Signs Temp Pulse Resp BP Pulse Ox 98.2 F 89 18 136/92 98 07/16/19 18:14 07/16/19 18:14 07/16/19 18:14 07/16/19 18:14 07/16/19 07:55 HEENT: BRYAN, EOM Intact Oropharynx: No thrush, No mucositis Neck: Supple Nodes: Without adenopathy Breasts: Without masses Cor: RSR, No murmurs, No gallops Lungs: Clear to P&A Abd: Soft, Normal bowel sounds, No organomegaly Ext:No significant edema Skin: No rashes, Integument intact Right flank pains CBC, BMP 07/16/19 06:50 07/16/19 06:50 Microbiology 07/14/19 17:15 Urine - Urine Clean Catch Urine Culture - Preliminary Lactose Fermenting Neg Bacilli Proteus Species 07/14/19 18:30 Blood - Peripheral Venous Blood Culture - Preliminary NO GROWTH OBTAINED AFTER 24 HOURS, INCUBATION TO CONTINUE FOR 4 DAYS. 07/14/19 18:30 Blood - Peripheral Venous Blood Culture - Preliminary NO GROWTH OBTAINED AFTER 24 HOURS, INCUBATION TO CONTINUE FOR 4 DAYS. Impression: Pyelonephritis- on antibiotics Family hx of SS and SC disease - to evaluate patient Anemia - hypochromic, microcytic- for HbE, Fe++ studies Patients with sickle cell disease and sickle trait are more prone to UTI's.. The renal medulla provides a hypoxic, acidic , hypertonic environment for this . The hypochromic /microcytic anemia raises concern for Fe++ deficiency. anemia. Await testing.
--- NOTE | 2019-07-16 19:15 | CONS ---
DATE OF CONSULTATION: 07/16/2019 HISTORY OF PRESENT ILLNESS: This 33-year-old female was admitted with urosepsis, presumably pyelonephritis. About 10 days earlier, the patient began experiencing right flank pain. Fevers began occurring about 3 days later, about 7 days prior to admission. The patient has had febrile course over the past approximately 1 week's time. It has been as high as 101 plus. She also had right flank pain. She has had increased frequency of urination but no true dysuria. 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 Nonsmoker. Nondrinker. Denies illicit drugs. No industrial exposures or intoxicants. FAMILY HISTORY: Includes a sister with SS disease, mother with SC disease. There is a history of hypertension. There is a history of blood clots in the family, and a history of cerebral aneurysms in the family as well. Patient as a child was told she has SC disease, has never had , is uncertain about her status of her hemoglobinopathy. The patient has no known allergies. CURRENT MEDICATIONS: Have included heparin, ceftriaxone, and Tylenol. REVIEW OF SYSTEMS: Patient complains of headaches, no diplopia, no epistaxis, no dysphagia, no chest pain, no shortness of breath. She has had a mammogram, no breast masses. No nausea, vomiting, diarrhea, constipation. No significant dysuria. Right flank pain. No lower extremity edema. CURRENT PHYSICAL EXAMINATION: Vital Signs: Blood pressure 133/88, pulse 81, respiratory rate 18, afebrile. HEENT: BRYAN, EOM intact. Oropharynx unremarkable. Lungs: Clear. Cardiac: RSR. Breast: No masses. Abdomen: Soft. No organomegaly. Extremities: No significant edema. LABORATORY: WBC 21.8 down to 16.6, hematocrit 27 down to 24.2, platelets 248,000. Initial differential: 77 polycytes, 7 lymphocytes, 8 monocytes. Hyperchromia microcytosis target cells. Chemistries: 140 sodium, potassium 3.5, chloride 108, CO2 of 26, BUN 6, creatinine 0.9, GFR 96, calcium 8.1, AST 11, ALT 12, alkaline phosphatase 68, protein 6, albumin 2.3. Urine: 2+ protein, trace ketones, trace blood, 145 cells, 3 red cells, bacteria 6 para 1. In the urine, patient also has a lactose fermenting negative bacilli. Blood cultures are negative today. IMPRESSION: Patient with family history of sickle cell disease, unclear about whether or not she does have sickle disease. Patient does have a hypochromic microcytic anemia. Iron studies to be obtained. Hemoglobin electrophoresis should be obtained. Based upon the results, further recommendations. There is a history in the family of SS disease as well as SC disease. LARA BECKETT M.D. FRANSISCA/[id number]
[2019-07-17] MEDS: ACETAMINOPHEN 325 MG TABLET (FP) PO PRN ×3 (06:11→23:45)
[2019-07-17 08:12] LABS: BASO % 0.5 % (0-2.0); HEMATOCRIT 25.7 % (32.4-45.2); HEMOGLOBIN 8.6 GM/dL (10.7-15.3); LYMPH % 25.3 % (8-40); MCH 24.7 pg (25.7-33.7); MCHC 33.3 g/dl (32.0-36.0); MEAN CELL VOLUME 74.3 fl (80-96); MEAN PLT VOLUME 8.8 fl (7.5-11.1); MONO % 11.7 % (3.8-10.2); NEUT % 60.5 % (42.8-82.8); PLATELET COUNT 309 K/MM3 (134-434); RBC 3.46 M/mm3 (3.60-5.2); RDW 17.5 % (11.6-15.6); RETICULOCYTES 0.27 % (0.5-1.5)
[2019-07-17 08:18] LABS: BILIRUBIN,DIRECT 0.1 mg/dL (0.0-0.2); BILIRUBIN,TOTAL 0.2 mg/dL (0.2-1)
[2019-07-17] MEDS ORDERED: cefTRIAXone SODIUM 1 GM VIAL ONE (10:07)
[2019-07-17] MEDS ORDERED: DEXTROSE 5%-WATER - 50 ML IVPB ONE (10:07)
[2019-07-17] MEDS: CEFTRIAXONE 1 GM in DEXTROSE 5%-WATER - 50 ML IVPB SCH (10:18)
[2019-07-17] MEDS: HEPARIN NA (PORCINE) 5,000 UNITS/ML 1ML VIAL SQ SCH (10:19)
--- NOTE | 2019-07-17 13:18 | PN ---
Progress Note, Physician Chief Complaint: Sepsis R Flank Pain History of Present Illness: Previous notes and events reviewed awake and alert NAD sts R flank pain improved denies dysuria, hematuria UC positive Hg 8.6 - Current Medication List Current Medications: Active Medications Acetaminophen (Tylenol -) 650 mg PO Q6H PRN PRN Reason: PAIN OR FEVER Last Admin: 07/17/19 06:11 Dose: 650 mg Heparin Sodium (Porcine) (Heparin -) 5,000 unit SQ BID [facility] Last Admin: 07/17/19 10:19 Dose: 5,000 unit Ceftriaxone Sodium 1 gm/ (Dextrose) 50 mls @ 100 mls/hr IVPB DAILY [facility] Last Admin: 07/17/19 10:18 Dose: 100 mls/hr Sodium Chloride (Normal Saline -) 1,000 mls @ 75 mls/hr IV ASDIR [facility] Last Admin: 07/16/19 18:10 Dose: Not Given - Objective Vital Signs: Vital Signs Temperature 98.8 F 07/17/19 10:00 Pulse Rate 92 H 07/17/19 10:00 Respiratory Rate 20 07/17/19 10:00 Blood Pressure 148/94 07/17/19 10:00 O2 Sat by Pulse Oximetry (%) 98 07/17/19 09:00 Constitutional: Yes: No Distress, Calm Eyes: Yes: Conjunctiva Clear HENT: Yes: Atraumatic Cardiovascular: Yes: Regular Rate and Rhythm Respiratory: Yes: Regular, CTA Bilaterally Gastrointestinal: Yes: Normal Bowel Sounds, Soft Genitourinary: Yes: CVA Tenderness - Right Musculoskeletal: Yes: WNL Extremities: Yes: WNL Edema: No Neurological: Yes: Alert, Oriented Psychiatric: Yes: Alert, Oriented Labs: CBC, BMP 07/17/19 07:10 07/16/19 06:50 Microbiology 07/14/19 17:15 Urine - Urine Clean Catch Urine Culture - Final Escherichia Coli Proteus Species 07/14/19 18:30 Blood - Peripheral Venous Blood Culture - Preliminary NO GROWTH OBTAINED AFTER 48 HOURS, INCUBATION TO CONTINUE FOR 3 DAYS. 07/14/19 18:30 Blood - Peripheral Venous Blood Culture - Preliminary NO GROWTH OBTAINED AFTER 48 HOURS, INCUBATION TO CONTINUE FOR 3 DAYS. Problem List - Problems (1) SAI (acute kidney injury) Assessment/Plan: -BUN/Cr 6.0/0.9 -monitor Renal function Code(s): N17.9 - ACUTE KIDNEY FAILURE, UNSPECIFIED (2) Pyelonephritis Assessment/Plan: -CT scan shows no urolithiasis and no definite hydronephrosis -UC positivr E. Coli -BC neg -WBC 12.0 -afebrile -Ceftriaxone -ID consult -UA shows 3+ leuks, positive nitrite Code(s): N12 - TUBULO-INTERSTITIAL NEPHRITIS, NOT SPCF ACUTE OR CHRONIC (3) Sepsis Assessment/Plan: -CT scan shows no urolithiasis and no definite hydronephrosis -UC positive -BC neg -WBC 12.0 -afebrile -Ceftriaxone -ID consult -UA shows 3+ leuks, positive nitrite -LA 1.4 Code(s): A41.9 - SEPSIS, UNSPECIFIED ORGANISM Qualifiers: Severe sepsis shock status: without septic shock (4) HTN (hypertension) Assessment/Plan: -diet controlloed -monitor BP Code(s): I10 - ESSENTIAL (PRIMARY) HYPERTENSION (5) Anemia Assessment/Plan: -Hg 8.6 -iron panel nl -stool OB -Hematology on board -patient with possible sickle cell trait, pending Hg Electrophoresis Code(s): D64.9 - ANEMIA, UNSPECIFIED Assessment/Plan see problem list dvt ppx
--- NOTE | 2019-07-17 15:45 | PN ---
Progress Note (short form) - Note Progress Note: feels improved still some flank discomfort Vital Signs Period Temp Pulse Resp BP Sys/Miller Pulse Ox Last 24 Hr 98.2 F-98.8 F 84-92 18-20 136-148/90-96 98-98 cor-rrr lungs clear abd minimal right flank pain ext no edema CBC, BMP 07/17/19 07:10 07/16/19 06:50 Microbiology 07/14/19 17:15 Urine - Urine Clean Catch Urine Culture - Final Escherichia Coli Proteus Species 07/14/19 18:30 Blood - Peripheral Venous Blood Culture - Preliminary NO GROWTH OBTAINED AFTER 48 HOURS, INCUBATION TO CONTINUE FOR 3 DAYS. 07/14/19 18:30 Blood - Peripheral Venous Blood Culture - Preliminary NO GROWTH OBTAINED AFTER 48 HOURS, INCUBATION TO CONTINUE FOR 3 DAYS. a/p right pyelonephritis/UTI sai-resolved anemia-chronic day #4 rocephin, can switch to po keflex 500 mg po bid in am to complete 10 days Problem List - Problems (1) Pyelonephritis Code(s): N12 - TUBULO-INTERSTITIAL NEPHRITIS, NOT SPCF ACUTE OR CHRONIC (2) SAI (acute kidney injury) Code(s): N17.9 - ACUTE KIDNEY FAILURE, UNSPECIFIED
[2019-07-18] MEDS ORDERED: guaiFENesin/D-METHORPHAN HB 10 ML UNIT-DOSE CUPS PO ONE (06:06)
[2019-07-18 08:31] LABS: HEMATOCRIT 26.1 % (32.4-45.2); HEMOGLOBIN 8.9 GM/dL (10.7-15.3); MCH 25.5 pg (25.7-33.7); MCHC 34.2 g/dl (32.0-36.0); MEAN CELL VOLUME 74.5 fl (80-96); MEAN PLT VOLUME 8.4 fl (7.5-11.1); PLATELET COUNT 343 K/MM3 (134-434); RBC 3.51 M/mm3 (3.60-5.2); RDW 17.5 % (11.6-15.6); WHITE BLOOD COUNT 9.4 K/mm3 (4.0-10.0)
[2019-07-18 09:05] LABS: ALBUMIN 2.5 g/dl (3.4-5.0); BILIRUBIN,TOTAL 0.2 mg/dL (0.2-1); BLOOD UREA NITROGEN 7.3 mg/dL (7-18); CALCIUM 8.8 mg/dL (8.5-10.1); POTASSIUM 3.9 mmol/L (3.5-5.1); TOT PROT 6.7 g/dl (6.4-8.2)
[2019-07-18] MEDS ORDERED: DEXTROSE 5%-WATER - 50 ML IVPB ONE (09:53)
[2019-07-18] MEDS ORDERED: cefTRIAXone SODIUM 1 GM VIAL ONE (09:53)
[2019-07-18] MEDS: CEFTRIAXONE 1 GM in DEXTROSE 5%-WATER - 50 ML IVPB SCH (10:07)
--- NOTE | 2019-07-18 13:29 | PN ---
Progress Note, Physician Chief Complaint: patient seen and examined feeling very cold tired and she is having palpations when she walks - Current Medication List Current Medications: Active Medications Acetaminophen (Tylenol -) 650 mg PO Q6H PRN PRN Reason: PAIN OR FEVER Last Admin: 07/17/19 23:45 Dose: 650 mg Ceftriaxone Sodium 1 gm/ (Dextrose) 50 mls @ 100 mls/hr IVPB DAILY [facility] Last Admin: 07/18/19 10:07 Dose: 100 mls/hr - Objective Vital Signs: Vital Signs Temperature 98.4 F 07/18/19 10:04 Pulse Rate 86 07/18/19 10:04 Respiratory Rate 20 07/18/19 10:04 Blood Pressure 139/88 07/18/19 10:04 O2 Sat by Pulse Oximetry (%) 98 07/18/19 09:00 Constitutional: Yes: Calm Cardiovascular: Yes: Regular Rate and Rhythm, S1, S2 Respiratory: Yes: CTA Bilaterally Gastrointestinal: Yes: Normal Bowel Sounds, Soft Edema: No Neurological: Yes: Alert, Oriented Labs: CBC, BMP 07/18/19 08:02 07/18/19 08:02 Problem List - Problems (1) Anemia Assessment/Plan: iron panel ok heme on board work up for sickle cell in progress Code(s): D64.9 - ANEMIA, UNSPECIFIED (2) Pyelonephritis Assessment/Plan: keflex 500mg po bid for 6 days Code(s): N12 - TUBULO-INTERSTITIAL NEPHRITIS, NOT SPCF ACUTE OR CHRONIC (3) Heart palpitations Assessment/Plan: echo tsh psych eval for anxiety Code(s): R00.2 - PALPITATIONS
--- NOTE | 2019-07-18 17:59 | CON.PSY ---
Psychiatry Consult Chief Complaint: 33 Kris old female seen for Psych eval for anxiety and Panic Disorder. Symptoms: reports: Anxiety, Panic Attacks - Previous Psychiatric Treatment Outpatient: More than 6 mos ago Inpatient: None - Previous Substance Abuse Treatment Outpatient: None Inpatient: None - Reason for Previous Treatment Reason for Previous Treatment: Anxiety or Panic Disorder - Current Medications Current Medications: Active Medications Acetaminophen (Tylenol -) 650 mg PO Q6H PRN PRN Reason: PAIN OR FEVER Last Admin: 07/17/19 23:45 Dose: 650 mg Cephalexin HCl (Keflex -) 500 mg PO BID [facility] Stop: 07/25/19 09:59 - Allergies Allergies: Allergies Allergy/AdvReac Type Severity Reaction Status Date / Time No Known Allergies Allergy Verified 07/14/19 16:48 - Current Living Status Usual Living Arrangement: With Spouse - Current Mental Status Evaluation Appearance: Well Groomed Attitude: Cooperative - Affect Affect: Constrictive Appropriateness: Appropriate to Content - Mood Mood: Anxious - Speech/Language Expressive: Coherent - Psychomotor Activity Psychomotor Activity: Hyperactive - Thought Process Thought Process: Intact - Thought Content Hallucinations: Absent Delusions: Absent - Self Perception Self Perception: No Impairment - Cognition Attention: Alert Orientation: Time Memory, Immediate Recall: Intact Memory, Short Term: 3/3 Memory, Remote with Promptin/3 - Concentration Serial Sevens Intact: Yes Simple Calculations Intact: Yes - Abstraction Proverb Interpretation: Intact Judgement: Minimally Impaired - Insight Insight: Intact - Impulse Control Impulse Control: Minimally Impaired - Suicidal Ideation Suicidal Ideation: No - Homicidal Ideation Homicidal Ideation: No Assessment/Plan !) suggest an SSRI, patient will get the name of Her previous meds. want to go back on it.
[2019-07-19] MEDS ORDERED: CEPHALEXIN MONOHYDRATE 500 MG CAPSULE (UD) PO SCH (10:00)
[2019-07-19 10:21] LABS: BASO % 0.5 % (0-2.0); HEMATOCRIT 30.1 % (32.4-45.2); HEMOGLOBIN 10.1 GM/dL (10.7-15.3); MCH 24.9 pg (25.7-33.7); MCHC 33.5 g/dl (32.0-36.0); MEAN CELL VOLUME 74.3 fl (80-96); MEAN PLT VOLUME 8.5 fl (7.5-11.1); MONO % 7.3 % (3.8-10.2); NEUT % 66.2 % (42.8-82.8); PLATELET COUNT 447 K/MM3 (134-434); RBC 4.05 M/mm3 (3.60-5.2); RDW 17.9 % (11.6-15.6); WHITE BLOOD COUNT 14.3 K/mm3 (4.0-10.0)
[2019-07-19] MEDS: ACETAMINOPHEN 325 MG TABLET (FP) PO PRN (13:03)
--- NOTE | 2019-07-19 15:37 | DS ---
Physical Examination Vital Signs: Vital Signs Temperature 97.9 F 07/19/19 09:43 Pulse Rate 87 07/19/19 09:43 Respiratory Rate 20 07/19/19 09:43 Blood Pressure 135/93 07/19/19 09:43 O2 Sat by Pulse Oximetry (%) 99 07/19/19 09:00 Findings/Remarks: 33 year old female with PMHx of HTN, kidney stones, arrived to ER for four days of fever and back pain. Patient also complaind of chest pain on /off, generalized muscle ache, cough, n/v, weakness and R sided back pain. Patient states she had had fever of 101F for the past three days and has not taken any medication. Denies dysuria, hemauria, SOB, diarrhea. Constitutional: Yes: Well Nourished, No Distress, Anxious Cardiovascular: Yes: Regular Rate and Rhythm Respiratory: Yes: Regular Gastrointestinal: Yes: Normal Bowel Sounds, Soft Renal/: Yes: WNL Musculoskeletal: Yes: WNL Extremities: Yes: WNL Edema: No Peripheral Pulses WNL: Yes Neurological: Yes: Alert, Oriented Psychiatric: Yes: Alert, Oriented Labs: CBC, BMP 07/19/19 08:50 07/18/19 08:02 Discharge Summary Reason For Visit: ACUTE KIDNEY INJURY,PYELONEPHRITIS,SEPIS,HYPOKALEM Current Active Problems SAI (acute kidney injury) (Acute) Anemia (Acute) HTN (hypertension) (Acute) Heart palpitations (Acute) Hypokalemia (Acute) Pyelonephritis (Acute) Sepsis (Acute) Hospital Course: Laboratory Last Values WBC 14.3 K/mm3 (4.0-10.0) H 07/19/19 08:50 RBC 4.05 M/mm3 (3.60-5.2) 07/19/19 08:50 Hgb 10.1 GM/dL (10.7-15.3) L 07/19/19 08:50 Hct 30.1 % (32.4-45.2) L D 07/19/19 08:50 MCV 74.3 fl (80-96) L 07/19/19 08:50 MCH 24.9 pg (25.7-33.7) L 07/19/19 08:50 MCHC 33.5 g/dl (32.0-36.0) 07/19/19 08:50 RDW 17.9 % (11.6-15.6) H 07/19/19 08:50 Plt Count 447 K/MM3 (134-434) H D 07/19/19 08:50 MPV 8.5 fl (7.5-11.1) 07/19/19 08:50 Absolute Neuts (auto) 9.5 K/mm3 (1.5-8.0) H 07/19/19 08:50 Neutrophils % 66.2 % (42.8-82.8) 07/19/19 08:50 Neutrophils % (Manual) 83.2 % (42.8-82.8) H 07/14/19 17:15 Band Neutrophils % 0.0 % 07/14/19 17:15 Lymphocytes % 24.0 % (8-40) 07/19/19 08:50 Lymphocytes % (Manual) 7.4 % (8-40) L 07/14/19 17:15 Monocytes % 7.3 % (3.8-10.2) 07/19/19 08:50 Monocytes % (Manual) 8 % (3.8-10.2) 07/14/19 17:15 Eosinophils % 2.0 % (0-4.5) 07/19/19 08:50 Eosinophils % (Manual) 0.0 % (0-4.5) 07/14/19 17:15 Basophils % 0.5 % (0-2.0) 07/19/19 08:50 Basophils % (Manual) 0.0 % (0-2.0) 07/14/19 17:15 Myelocytes % (Man) 0 % (0-2) 07/14/19 17:15 Promyelocytes % (Man) 0 % (0-2) 07/14/19 17:15 Blast Cells % (Manual) 0 % (0-0) 07/14/19 17:15 Nucleated RBC % 0 % (0-0) 07/19/19 08:50 Metamyelocytes 0 % (0-2) 07/14/19 17:15 Hypochromia 1+ 07/14/19 17:15 Platelet Estimate Normal 07/14/19 17:15 Polychromasia 1+ 07/14/19 17:15 Poikilocytosis 0 07/14/19 17:15 Anisocytosis 1+ 07/14/19 17:15 Microcytosis 1+ 07/14/19 17:15 Macrocytosis 0 07/14/19 17:15 Target Cells 1+ 07/14/19 17:15 Retic Count 0.27 % (0.5-1.5) L 07/17/19 07:10 PTT (Actin FS) 31.6 SECONDS (25.2-36.5) 07/14/19 18:30 VBG pH 7.39 (7.31-7.41) 07/14/19 18:30 POC VBG pCO2 43.2 mmHg (38-52) 07/14/19 18:30 POC VBG pO2 < 49 mmHg (28-48) H 07/14/19 18:30 VBG HCO3 25.5 mmol/L (23-29) 07/14/19 18:30 VBG O2 Sat (Emmanule) 50.9 % (70-80) L 07/14/19 18:30 VBG Base Excess 1.0 meq/l (-2-2) 07/14/19 18:30 Sodium 138 mmol/L (136-145) 07/18/19 08:02 Potassium 3.9 mmol/L (3.5-5.1) 07/18/19 08:02 Chloride 105 mmol/L (98-107) 07/18/19 08:02 Carbon Dioxide 28 mmol/L (21-32) 07/18/19 08:02 Anion Gap 6 MMOL/L (8-16) L 07/18/19 08:02 BUN 7.3 mg/dL (7-18) 07/18/19 08:02 Creatinine 1.0 mg/dL (0.55-1.3) 07/18/19 08:02 Est GFR (CKD-EPI)AfAm 85.12 07/18/19 08:02 Est GFR (CKD-EPI)NonAf 73.45 07/18/19 08:02 Random Glucose 86 mg/dL (74-106) 07/18/19 08:02 Lactic Acid 1.4 mmol/L (0.4-2.0) 07/14/19 22:00 Calcium 8.8 mg/dL (8.5-10.1) 07/18/19 08:02 Magnesium 1.8 mg/dL (1.8-2.4) 07/14/19 22:00 Iron 70 ug/dL (50-175) 07/17/19 07:10 TIBC 280 ug/dL (250-450) 07/17/19 07:10 Iron Saturation 25 % (17.5-39) 07/17/19 07:10 Unsaturated IBC 210 ug/dL (200-275) 07/17/19 07:10 Ferritin 72.7 ng/ml (8-388) 07/17/19 07:10 Total Bilirubin 0.2 mg/dL (0.2-1) 07/18/19 08:02 Direct Bilirubin 0.1 mg/dL (0.0-0.2) 07/17/19 07:10 AST 20 U/L (15-37) 07/18/19 08:02 ALT 19 U/L (13-61) 07/18/19 08:02 Alkaline Phosphatase 68 U/L (45-117) 07/18/19 08:02 LD Total 130 U/L (84-246) 07/17/19 07:10 Troponin I < 0.02 ng/ml (0.00-0.05) 07/15/19 01:12 Total Protein 6.7 g/dl (6.4-8.2) 07/18/19 08:02 Albumin 2.5 g/dl (3.4-5.0) L 07/18/19 08:02 TSH 2.39 uIU/ml (0.358-3.74) 07/19/19 08:50 Urine Color Dk yellow 07/14/19 17:15 Urine Appearance Turbid 07/14/19 17:15 Urine pH 5.5 (5.0-8.0) 07/14/19 17:15 Ur Specific Sh[place]ler 1.025 (1.010-1.035) 07/14/19 17:15 Urine Protein 2+ (NEGATIVE) H 07/14/19 17:15 Urine Glucose (UA) Negative (NEGATIVE) 07/14/19 17:15 Urine Ketones Trace (NEGATIVE) H 07/14/19 17:15 Urine Blood Trace (NEGATIVE) 07/14/19 17:15 Urine Nitrite Positive (NEGATIVE) H 07/14/19 17:15 Urine Bilirubin Negative (NEGATIVE) 07/14/19 17:15 Urine Urobilinogen 1.0 mg/dL (0.2-1.0) 07/14/19 17:15 Ur Leukocyte Esterase 3+ (NEGATIVE) H 07/14/19 17:15 Urine WBC (Auto) 145 /hpf (0-5) 07/14/19 17:15 Urine RBC (Auto) 3.5 /hpf (0-4) 07/14/19 17:15 Urine Casts (Auto) 162 /lpf (0-8) 07/14/19 17:15 U Pathogenic Cast Auto 0-1 /lpf (NEGATIVE) 07/14/19 17:15 U Epithel Cells (Auto) 7.8 /HPF (0-5/HPF) 07/14/19 17:15 Urine Bacteria (Auto) 2788.3 /hpf (NEGATIVE) 07/14/19 17:15 Urine HCG, Qual Negative 07/14/19 17:15 Stool Occult Blood Negative (NEGATIVE) 07/18/19 08:36 Microbiology 07/14/19 18:30 Blood - Peripheral Venous Blood Culture - Preliminary NO GROWTH OBTAINED AFTER 96 HOURS, INCUBATION TO CONTINUE FOR 1 DAYS. 07/14/19 18:30 Blood - Peripheral Venous Blood Culture - Preliminary NO GROWTH OBTAINED AFTER 96 HOURS, INCUBATION TO CONTINUE FOR 1 DAYS. 07/14/19 17:15 Urine - Urine Clean Catch Urine Culture - Final Escherichia Coli Proteus Species Vital Signs Temp 97.9 F 07/19/19 09:43 Pulse 87 07/19/19 09:43 Resp 20 07/19/19 09:43 BP 135/93 07/19/19 09:43 Pulse Ox 99 07/19/19 09:00 Intake & Output 07/18/19 07/19/19 07/19/19 23:59 11:59 23:59 Intake Total 1150 680 200 Balance 1150 680 200 Intake: IVPB 50 Oral 1100 680 200 Other: Voiding Method Toilet Toilet # Unmeasured Voids Void 3 2 Bowel Movement Yes No # Bowel Movements 2 Condition: Good - Instructions Diet, Activity, Other Instructions: F/U with your PCP within 2 weeks F/U with Hematology Dr Sourav Cope within 2 weeks Take cephalexin 500 mg 2 x day for 10 days Referrals: Sourav Cope MD [Staff Physician] - Disposition: HOME - Home Medications Comprehensive Discharge Medication List: Ambulatory Orders Fluticasone Prop 0.05% Nasal [Flonase -] 1 - 2 spray NS DAILY #1 spray.pump Acetaminophen [Tylenol .Regular Strength -] 650 mg PO Q6H PRN tablet 07/19/19 Cephalexin Monohydrate [Keflex -] 500 mg PO BID #20 capsule 07/19/19
[2019-07-19 16:08] VITALS: BP 130/78; PULSE 88; TEMP 98.4
--- NOTE | 2019-07-21 07:22 | ECHO ---
Name: ROX CALDERON Exam:Adult Echocardiogram Study Date: 07/18/2019 01:45 PM Age: 33 yrs Reason For Study: SOB Height: 59 in Weight: 132 lb BSA: 1.5 m2 MMode/2D Measurements & Calculations LAV (MOD-bp): 39.2 ml Doppler Measurements & Calculations MV E max thang: 88.8 cm/sec Ao V2 max: 118.1 cm/sec MV A max thang: 80.0 cm/sec Ao max P.6 mmHg MV E/A: 1.1 MV dec time: 0.15 sec LV V1 max P.3 mmHg MR max thang: 150.7 cm/sec LV V1 max: 90.7 cm/sec MR max P.1 mmHg TR max thang: 224.4 cm/sec PA V2 max: 100.4 cm/sec TR max P.3 mmHg PA max P.0 mmHg Med Peak E' Thang: 8.3 cm/sec PI Vmax: 88.2 cm/sec Med E/e': 10.7 Lat Peak E' Thang: 7.4 cm/sec Lat E/e': 12.0 Left Ventricle Left ventricular systolic function is normal. Ejection Fraction = 50-55%. The transmitral spectral Do ppler flow pattern is normal for age. Right Ventricle The right ventricle is normal in size and function. Atria The left atrium is mildly dilated. Right atrial size is normal. Mitral Valve The mitral valve is normal in structure and function. There is no mitral valve stenosis. There is mil d mitral regurgitation. Tricuspid Valve The tricuspid valve is normal in structure and function. There is mild tricuspid regurgitation. Right ventricular systolic pressure is normal. Aortic Valve The aortic valve is trileaflet. No hemodynamically significant valvular aortic stenosis. No aortic regurgitation is present. Pulmonic Valve The pulmonic valve is not well seen, but is grossly normal. There is no pulmonic valvular stenosis. M ild pulmonic valvular regurgitation. Great Vessels The aortic root is normal size. Pericardium/Pleura There is no pericardial effusion. Interpretation Summary Left ventricular systolic function is normal. Ejection Fraction = 50-55%. The right ventricle is normal in size and function. The left atrium is mildly dilated. There is mild mitral regurgitation. There is mild tricuspid regurgitation. Right ventricular systolic pressure is normal. There is no pericardial effusion. MD Hines *Fidel 07/18/2019 02:58 PM
[2019-07-22 14:07] LABS: HGB SOLUBILITY Negative (Negative); Hgb F 0 % (0.0-2.0); Hgb S 0 % (0.0)
== END 2019-07-19 18:14 | disposition home or self-care (01) | DRG 720 ==
LOC: JERFT 16:27 → JERBED 23:16 → J5S 07-15 04:20
PROVIDERS: ADMIT Family Medicine; ATTEND Family Medicine
DX: A41.9 Sepsis, unspecified organism (principal); N17.9 Acute kidney failure, unspecified; E87.6 Hypokalemia; I10 Essential (primary) hypertension; N12 Tubulo-interstitial nephritis, not specified as acute or chronic; D64.9 Anemia, unspecified; F41.9 Anxiety disorder, unspecified; F41.0 Panic disorder [episodic paroxysmal anxiety]; N39.0 Urinary tract infection, site not specified; B96.20 Unspecified Escherichia coli [E. coli] as the cause of diseases classified elsewhere; N83.8 Other noninflammatory disorders of ovary, fallopian tube and broad ligament
CPT/HCPCS: 36415; 71045-TC-FY; 71046-TC-FY; 74176-TC; 80048; 80053; 81003; 82247; 82248; 82272; 82728; 82803; 83021; 83540; 83550; 83605; 83615; 83735; 84443; 84484; 84703; 85025; 85027; 85044; 85660; 85730; 87040; 87077; 87086; 87186; 93005; 93010; 93306-TC; 99284-25; J0131; J1644; J7030

== ENCOUNTER 2021-07-03 20:35 | Inpatient (IN) | payer OTHER ==
[2021-07-03 20:45] VITALS: BMI 24.2
[2021-07-03] MEDS ORDERED: morphine CARPU-JECT 2 MG/1 ML DISP.SYRIN IVPUSH ONE ×2 (20:47→22:20)
[2021-07-03] MEDS ORDERED: MORPHINE SULFATE 2 MG/ML VIAL ONE ×2 (20:53→22:25)
[2021-07-03 21:11] LABS: BASO % 0.5 % (0-2.0); EOS % 1.2 % (0-4.5); HEMATOCRIT 29.5 % (32.4-45.2); LYMPH % 18.8 % (8-40); MCH 25.5 pg (25.7-33.7); MCHC 33.9 g/dl (32.0-36.0); MEAN CELL VOLUME 75.2 fl (80-96); MEAN PLT VOLUME 8.2 fl (7.5-11.1); MONO % 5.9 % (3.8-10.2); NEUT % 73.6 % (42.8-82.8); PLATELET COUNT 377 10^3/uL (134-434); RBC 3.92 M/mm3 (3.60-5.2); RDW 18.2 % (11.6-15.6); WHITE BLOOD COUNT 14.4 K/mm3 (4.0-10.0)
[2021-07-03 21:20] LABS: CALCIUM 8.4 mg/dL (8.5-10.1)
[2021-07-03 21:21] LABS: ALBUMIN 3.4 g/dl (3.4-5.0); BLOOD UREA NITROGEN 10.4 mg/dL (7-18)
[2021-07-03 21:24] LABS: CREATININE 1.1 mg/dL (0.55-1.3)
[2021-07-03 21:26] LABS: BILIRUBIN,TOTAL 0.3 mg/dL (0.2-1); TOT PROT 8.1 g/dl (6.4-8.2)
[2021-07-03] MEDS ORDERED: SODIUM CHLORIDE 0.9% 500 ML INFUS.BAG IV ONE ×2 (21:35→23:17)
[2021-07-03] MEDS ORDERED: KETOROLAC TROMETHAMINE 15 MG/ML VIAL IVPUSH ONE (21:41)
[2021-07-03] MEDS ORDERED: SODIUM CHLORIDE 0.9% 1000 ML INFUS.BAG IV ONE (21:41)
[2021-07-03] MEDS ORDERED: KETOROLAC TROMETHAMINE 15 MG/ML VIAL ONE (21:44)
[2021-07-03] MEDS ORDERED: ACETAMINOPHEN 1000 MG/100 ML VIAL (NON FORMULARY) IVPB ONE (22:19)
[2021-07-03] MEDS ORDERED: ACETAMINOPHEN INJECTION 100 ML IVPB ONE (22:25)
[2021-07-03] MEDS ORDERED: CEFTRIAXONE 1,000 MG in DEXTROSE 5%-WATER - 50 ML IVPB ONE (23:38)
[2021-07-03 23:46] LABS: EPI CELLS 4 /uL (0-25.1); HYALINE CASTS 1 /uL (0-3.1); URINE APPEARANCE CLEAR; URINE BACTERIA 810 /uL (0-1359); URINE BILIRUBIN NEGATIVE (NEGATIVE); URINE COLOR ORANGE; URINE GLUCOSE (UA) NEGATIVE (NEGATIVE); URINE KETONE NEGATIVE (NEGATIVE); URINE LEUK ESTERASE 2+ (NEGATIVE); URINE NITRITE NEGATIVE (NEGATIVE); URINE PROTEIN TRACE (NEGATIVE); URINE RBC 1616 /uL (0-23.9); URINE UROBILINOGEN 0.2 mg/dL (0.2-1.0); URINE WBC 316 /uL (0-25.8)
[2021-07-04] MEDS ORDERED: CEFTRIAXONE 1 GM/50 ML BAG ONE (01:19)
[2021-07-04] MEDS: MORPHINE SULFATE 2 MG/ML VIAL IVPUSH PRN ×2 (08:09→16:31)
[2021-07-04] MEDS: DEXTROSE 5%-0.45% SALINE 1,000 ML IV SCH (08:11)
[2021-07-04] MEDS ORDERED: DEXTROSE 5%-WATER - 50 ML IVPB ONE (09:34)
[2021-07-04] MEDS ORDERED: cefTRIAXone SODIUM 1 GM VIAL ONE (09:34)
[2021-07-04] MEDS: ACETAMINOPHEN 325 MG TABLET (FP) PO PRN (09:41)
[2021-07-04] MEDS: CEFTRIAXONE 1 GM in DEXTROSE 5%-WATER - 50 ML IVPB SCH (09:42)
[2021-07-04] MEDS: ENOXAPARIN NA (PORCINE) 40 MG/0.4 ML DISP.SYRIN SQ SCH (09:42)
[2021-07-04] MEDS: ONDANSETRON 4 MG/2 ML VIAL IVPUSH PRN ×2 (12:15→21:36)
[2021-07-04] MEDS: amLODIPine BESYLATE 5 MG TABLET (FP) PO SCH (12:15)
[2021-07-05] MEDS: MORPHINE SULFATE 2 MG/ML VIAL IVPUSH PRN (06:33)
[2021-07-05 08:50] LABS: BASO % 0.3 % (0-2.0); EOS % 0.6 % (0-4.5); HEMATOCRIT 27.7 % (32.4-45.2); HEMOGLOBIN 9.5 GM/dL (10.7-15.3); LYMPH % 27.7 % (8-40); MCHC 34.4 g/dl (32.0-36.0); MEAN CELL VOLUME 75.5 fl (80-96); MEAN PLT VOLUME 8.8 fl (7.5-11.1); MONO % 12.9 % (3.8-10.2); NEUT % 58.5 % (42.8-82.8); PLATELET COUNT 328 10^3/uL (134-434); RBC 3.67 M/mm3 (3.60-5.2); RDW 18.5 % (11.6-15.6)
[2021-07-05 09:37] LABS: CALCIUM 8.1 mg/dL (8.5-10.1)
[2021-07-05 09:38] LABS: ALBUMIN 2.8 g/dl (3.4-5.0)
[2021-07-05 09:40] LABS: BILIRUBIN,TOTAL 0.3 mg/dL (0.2-1)
[2021-07-05 09:41] LABS: TOT PROT 6.9 g/dl (6.4-8.2)
[2021-07-05] MEDS ORDERED: DEXTROSE 5%-WATER - 50 ML IVPB ONE (10:18)
[2021-07-05] MEDS ORDERED: cefTRIAXone SODIUM 1 GM VIAL ONE (10:18)
[2021-07-05] MEDS: CEFTRIAXONE 1 GM in DEXTROSE 5%-WATER - 50 ML IVPB SCH (10:21)
[2021-07-05] MEDS: ENOXAPARIN NA (PORCINE) 40 MG/0.4 ML DISP.SYRIN SQ SCH (10:21)
[2021-07-05] MEDS: amLODIPine BESYLATE 5 MG TABLET (FP) PO SCH (10:23)
[2021-07-06] MEDS: DEXTROSE 5%-0.45% SALINE 1,000 ML IV SCH ×2 (02:34→20:30)
[2021-07-06] MEDS: ONDANSETRON 4 MG/2 ML VIAL IVPUSH PRN (02:40)
[2021-07-06] MEDS ORDERED: DEXTROSE 5%-WATER - 50 ML IVPB ONE (09:28)
[2021-07-06] MEDS: amLODIPine BESYLATE 5 MG TABLET (FP) PO SCH (09:28)
[2021-07-06] MEDS ORDERED: cefTRIAXone SODIUM 1 GM VIAL ONE (09:28)
[2021-07-06] MEDS: CEFTRIAXONE 1 GM in DEXTROSE 5%-WATER - 50 ML IVPB SCH (09:28)
[2021-07-06] MEDS: ENOXAPARIN NA (PORCINE) 40 MG/0.4 ML DISP.SYRIN SQ SCH (09:29)
[2021-07-06 09:36] LABS: BASO % 0.4 % (0-2.0); EOS % 2.3 % (0-4.5); HEMATOCRIT 29.6 % (32.4-45.2); HEMOGLOBIN 10.2 GM/dL (10.7-15.3); MCHC 34.3 g/dl (32.0-36.0); MEAN CELL VOLUME 75.9 fl (80-96); MEAN PLT VOLUME 8.6 fl (7.5-11.1); MONO % 10.9 % (3.8-10.2); NEUT % 57.4 % (42.8-82.8); PLATELET COUNT 340 10^3/uL (134-434); RBC 3.91 M/mm3 (3.60-5.2); RDW 18.7 % (11.6-15.6); WHITE BLOOD COUNT 8.7 K/mm3 (4.0-10.0)
[2021-07-06 09:55] LABS: BLOOD UREA NITROGEN 4.6 mg/dL (7-18); CALCIUM 8.4 mg/dL (8.5-10.1)
[2021-07-06 09:59] LABS: CREATININE 0.9 mg/dL (0.55-1.3)
[2021-07-06 10:00] LABS: BILIRUBIN,TOTAL 0.2 mg/dL (0.2-1); TOT PROT 7.2 g/dl (6.4-8.2)
[2021-07-06 10:04] LABS: ALBUMIN 2.9 g/dl (3.4-5.0)
[2021-07-06] MEDS ORDERED: POLYETHYLENE GLYCOL (HEALTHYLAX) 3350 17 GM PACKET PO PRN (21:47)
[2021-07-07] MEDS ORDERED: PROPOFOL 20 ML ONE ×2 (08:01)
[2021-07-07] MEDS ORDERED: SUCCINYLCHOLINE CHLORIDE 200 MG/10 ML SYRINGE ONE (08:01)
[2021-07-07] MEDS ORDERED: MIDAZOLAM HCL 2 MG/2 ML SINGLE DOSE VIAL ONE ×2 (08:01→08:02)
[2021-07-07] MEDS ORDERED: DEXAMETHASONE SOD PHOSPHATE 4 MG/1 ML VIAL ONE (08:01)
[2021-07-07] MEDS ORDERED: ceFAZolin SODIUM 1 GM VIAL IVPB ONE (08:30)
[2021-07-07] MEDS ORDERED: ceFAZolin SODIUM 1 GM VIAL ONE (08:30)
[2021-07-07] MEDS ORDERED: DESFLURANE GAS 240 ML BOTTLE IH ONE (08:53)
[2021-07-07] MEDS: POLYETHYLENE GLYCOL (HEALTHYLAX) 3350 17 GM PACKET PO SCH ×2 (09:53→11:19)
[2021-07-07] MEDS: ENOXAPARIN NA (PORCINE) 40 MG/0.4 ML DISP.SYRIN SQ SCH ×2 (09:53→11:19)
[2021-07-07] MEDS: amLODIPine BESYLATE 5 MG TABLET (FP) PO SCH ×2 (09:54→11:19)
[2021-07-07] MEDS: CEFTRIAXONE 1 GM in DEXTROSE 5%-WATER - 50 ML IVPB SCH ×2 (09:54→11:19)
[2021-07-07] MEDS ORDERED: ONDANSETRON 4 MG/2 ML VIAL IVPUSH PRN (10:49)
[2021-07-07] MEDS ORDERED: oxyCODONE HCL 5 MG TABLET PO ONE (10:49)
[2021-07-07] MEDS ORDERED: cefTRIAXone SODIUM 1 GM VIAL ONE (11:17)
[2021-07-07] MEDS ORDERED: DEXTROSE 5%-WATER - 50 ML IVPB ONE (11:17)
[2021-07-07] MEDS ORDERED: PT OWN MED DRAWER 7, Y5N ONE (11:29)
[2021-07-07] MEDS: ONDANSETRON 4 MG/2 ML VIAL IVPUSH PRN (13:53)
[2021-07-07] MEDS ORDERED: MORPHINE SULFATE 2 MG/ML VIAL IVPB ONE (15:45)
[2021-07-07] MEDS ORDERED: MORPHINE SULFATE 2 MG/ML VIAL IVPUSH ONE ×2 (16:21→16:30)
[2021-07-07] MEDS: DEXTROSE 5%-0.45% SALINE 1,000 ML IV SCH (17:10)
[2021-07-07] MEDS: oxyCODONE HCL 5 MG TABLET PO PRN (20:49)
[2021-07-07] MEDS: ACETAMINOPHEN 325 MG TABLET (FP) PO PRN (21:54)
[2021-07-08] MEDS: oxyCODONE HCL 5 MG TABLET PO PRN ×3 (06:24→18:13)
[2021-07-08] MEDS ORDERED: PT OWN MED DRAWER 7, Y5N ONE (07:32)
[2021-07-08] MEDS: DEXTROSE 5%-0.45% SALINE 1,000 ML IV SCH ×2 (08:22→08:26)
[2021-07-08] MEDS ORDERED: DEXTROSE 5%-WATER - 50 ML IVPB ONE (08:55)
[2021-07-08] MEDS ORDERED: cefTRIAXone SODIUM 1 GM VIAL ONE (08:55)
[2021-07-08] MEDS: ENOXAPARIN NA (PORCINE) 40 MG/0.4 ML DISP.SYRIN SQ SCH (08:59)
[2021-07-08] MEDS: POLYETHYLENE GLYCOL (HEALTHYLAX) 3350 17 GM PACKET PO SCH (08:59)
[2021-07-08] MEDS: amLODIPine BESYLATE 5 MG TABLET (FP) PO SCH (08:59)
[2021-07-08] MEDS: CEFTRIAXONE 1 GM in DEXTROSE 5%-WATER - 50 ML IVPB SCH (08:59)
[2021-07-08] MEDS ORDERED: ACETAMINOPHEN 1000 MG/100 ML VIAL (NON FORMULARY) IVPB PRN (22:30)
[2021-07-09] MEDS: ACETAMINOPHEN 325 MG TABLET (FP) PO PRN (04:31)
[2021-07-09 08:27] LABS: BASO % 0.5 % (0-2.0); EOS % 0.8 % (0-4.5); HEMATOCRIT 28.4 % (32.4-45.2); HEMOGLOBIN 9.7 GM/dL (10.7-15.3); LYMPH % 22.1 % (8-40); MCH 25.4 pg (25.7-33.7); MEAN CELL VOLUME 74.5 fl (80-96); MEAN PLT VOLUME 8.1 fl (7.5-11.1); MONO % 9.1 % (3.8-10.2); NEUT % 67.5 % (42.8-82.8); PLATELET COUNT 334 10^3/uL (134-434); RBC 3.82 M/mm3 (3.60-5.2); RDW 18.1 % (11.6-15.6); WHITE BLOOD COUNT 12.2 K/mm3 (4.0-10.0)
[2021-07-09 08:48] LABS: ALBUMIN 2.7 g/dl (3.4-5.0); BLOOD UREA NITROGEN 4.1 mg/dL (7-18); CALCIUM 8.5 mg/dL (8.5-10.1)
[2021-07-09 08:53] LABS: BILIRUBIN,TOTAL 0.4 mg/dL (0.2-1); TOT PROT 7.4 g/dl (6.4-8.2)
[2021-07-09] MEDS: CEFTRIAXONE 1 GM in DEXTROSE 5%-WATER - 50 ML IVPB SCH (10:24)
[2021-07-09] MEDS: DEXTROSE 5%-0.45% SALINE 1,000 ML IV SCH (10:24)
[2021-07-09] MEDS: ENOXAPARIN NA (PORCINE) 40 MG/0.4 ML DISP.SYRIN SQ SCH (10:25)
[2021-07-09] MEDS: amLODIPine BESYLATE 5 MG TABLET (FP) PO SCH (10:25)
[2021-07-09] MEDS: POLYETHYLENE GLYCOL (HEALTHYLAX) 3350 17 GM PACKET PO SCH (10:25)
[2021-07-09] MEDS: AMOX TR/POT CLAV 875MG/125MG TABLETS (FP) PO SCH (17:23)
[2021-07-09] MEDS ORDERED: POTASSIUM CHLORIDE TABS 20 MEQ TABLET.ER (FP) PO ONE (21:29)
[2021-07-09] MEDS ORDERED: ACETAMINOPHEN 325 MG TABLET (FP) PO PRN (22:49)
[2021-07-10] MEDS ORDERED: ACETAMINOPHEN 325 MG TABLET (FP) PO PRN (00:49)
[2021-07-10 07:41] LABS: BASO % 0.6 % (0-2.0); EOS % 2.6 % (0-4.5); HEMATOCRIT 27.9 % (32.4-45.2); HEMOGLOBIN 9.6 GM/dL (10.7-15.3); LYMPH % 27.2 % (8-40); MCH 25.6 pg (25.7-33.7); MCHC 34.2 g/dl (32.0-36.0); MEAN CELL VOLUME 74.8 fl (80-96); MEAN PLT VOLUME 8.3 fl (7.5-11.1); NEUT % 59.6 % (42.8-82.8); PLATELET COUNT 325 10^3/uL (134-434); RBC 3.74 M/mm3 (3.60-5.2); RDW 18.1 % (11.6-15.6); WHITE BLOOD COUNT 10.9 K/mm3 (4.0-10.0)
[2021-07-10 08:08] VITALS: BP 133/79; PULSE 69; TEMP 98.3
[2021-07-10 08:10] LABS: ALBUMIN 2.6 g/dl (3.4-5.0)
[2021-07-10 08:12] LABS: CALCIUM 8.9 mg/dL (8.5-10.1)
[2021-07-10 08:14] LABS: BLOOD UREA NITROGEN 5.3 mg/dL (7-18)
[2021-07-10 08:16] LABS: BILIRUBIN,TOTAL 0.4 mg/dL (0.2-1); CREATININE 0.9 mg/dL (0.55-1.3)
[2021-07-10 08:18] LABS: TOT PROT 6.9 g/dl (6.4-8.2)
[2021-07-10] MEDS: ENOXAPARIN NA (PORCINE) 40 MG/0.4 ML DISP.SYRIN SQ SCH (09:00)
[2021-07-10] MEDS: amLODIPine BESYLATE 5 MG TABLET (FP) PO SCH (09:00)
[2021-07-10] MEDS: AMOX TR/POT CLAV 875MG/125MG TABLETS (FP) PO SCH (09:00)
[2021-07-10] MEDS: POLYETHYLENE GLYCOL (HEALTHYLAX) 3350 17 GM PACKET PO SCH (09:00)
== END 2021-07-10 16:36 | disposition home or self-care (01) | DRG 465 ==
LOC: JER 20:35 → JERBED 23:34 → J6S 07-04 04:38
PROVIDERS: ADMIT Internal Medicine; ATTEND Internal Medicine
PROC: 0T778DZ Dilation of Left Ureter with Intraluminal Device, Via Natural or Artificial Opening Endoscopic (ICD-10-PCS; principal; 2021-07-07 07:30)
PROC: BT1FYZZ Fluoroscopy of Left Kidney, Ureter and Bladder using Other Contrast (ICD-10-PCS; 2021-07-07 07:30)
PROC: 0TF78ZZ Fragmentation in Left Ureter, Via Natural or Artificial Opening Endoscopic (ICD-10-PCS; 2021-07-07 07:30)
DX: N13.2 Hydronephrosis with renal and ureteral calculous obstruction (principal); I10 Essential (primary) hypertension; J45.909 Unspecified asthma, uncomplicated; K59.09 Other constipation; N39.0 Urinary tract infection, site not specified
CPT/HCPCS: 36415; 74018-TC-FY; 74177-TC; 76775-TC; 76856-TC; 80053; 81003; 84703; 85025; 87086; 87186; 93005; 93010; 94760; 99285-25; C9803; J0131; Q9967; U0003; U0005

== ENCOUNTER 2022-01-17 14:21 | Emergency (ER) | payer OTHER ==
[2022-01-17 14:46] VITALS: BP 139/89; PULSE 84; TEMP 98.1; BMI 24.4
== END 2022-01-17 15:52 | disposition home or self-care (01) ==
LOC: JERFT 14:21
DX: Z11.3 Encounter for screening for infections with a predominantly sexual mode of transmission (principal)
CPT/HCPCS: 36415; 87491; 87591; 99283-25

== ENCOUNTER 2022-08-08 16:54 | Emergency (ER) | payer OTHER ==
[2022-08-08 16:59] VITALS: BP 122/80; PULSE 79; RESP 18; TEMP 98.2; BMI 23.4
[2022-08-08] MEDS ORDERED: KETOROLAC TROMETHAMINE 30 MG/1 ML VIAL IM ONE (17:36)
[2022-08-08] MEDS ORDERED: METOCLOPRAMIDE HCL 10 MG TABLET (FP) PO ONE ×2 (17:36→18:10)
[2022-08-08] MEDS ORDERED: KETOROLAC TROMETHAMINE 30 MG/1 ML VIAL ONE (18:11)
== END 2022-08-08 20:55 | disposition home or self-care (01) ==
LOC: JER 16:54
PROC: 3E023GC Introduction of Other Therapeutic Substance into Muscle, Percutaneous Approach (ICD-10-PCS; principal; 2022-08-08)
DX: R51.9 Headache, unspecified (principal)
CPT/HCPCS: 70450-TC; 99284-25

== ENCOUNTER 2023-11-07 17:04 | Emergency (ER) | payer OTHER ==
[2023-11-07 18:17] VITALS: BP 139/95; PULSE 86; RESP 18; TEMP 98.3; BMI 20.2
== END 2023-11-07 20:20 | disposition home or self-care (01) ==
LOC: JERFT 17:04
DX: R06.02 Shortness of breath (principal); B34.9 Viral infection, unspecified; U07.1 COVID-19
CPT/HCPCS: 99282-25

== ENCOUNTER 2024-01-01 12:46 | Emergency (ER) | payer OTHER ==
[2024-01-01 13:25] VITALS: BP 115/54; PULSE 79; RESP 17; TEMP 97.9; BMI 20.2
== END 2024-01-01 14:30 | disposition home or self-care (01) ==
LOC: JERFT 12:46 → JER 12:46 → JERFT 14:30
DX: F41.9 Anxiety disorder, unspecified (principal)
CPT/HCPCS: 93005; 93010; 99283-25